=== PATIENT | female | born 1950 | race Caucasian/White ===

== ENCOUNTER → 2017-11-21 13:05 | Outpatient (CLI) | payer MEDICARE, SELFPAY ==
--- NOTE | 2017-11-21 | NVE_ITS ---
Cerebrovascular Exam Indications: 729.5 Pain in limb. IMPRESSIONS 1. There is no evidence of significant Reflux. 2. No evidence of deep or superficial vein thrombosis involving the right lower extremity Carotid duplex study. Complete study and Doppler flow study including spectral analysis, color and quintana scale imaging. Location: Vascular laboratory. Patient status: Outpatient. Tables: Venous flow and imaging: + +-------+ + Location Overall Flow properties + +-------+ + Right common femoral Patent Normal phasicity; spontaneous; normal augmentation; compressible + +-------+ + Right saphenofemoral junction Patent Compressible + +-------+ + Right profunda femoral Patent Compressible + +-------+ + Right femoral Patent Normal phasicity; spontaneous; normal augmentation; compressible + +-------+ + Right greater saphenous Patent Normal phasicity; spontaneous; normal augmentation; compressible + +-------+ + Right popliteal Patent Normal phasicity; spontaneous; normal augmentation; compressible + +-------+ + Right posterior tibial Patent Compressible + +-------+ + Right peroneal Patent Compressible + +-------+ + Right gastrocnemius Patent Compressible + +-------+ + Right soleal Patent Compressible + +-------+ + (Report amended ) Electronically signed by: Loy Luna [id number]
== END ==
PROVIDERS: PCP Family Medicine; Visit Provider Emergency Medicine
DX: M79.89 Other specified soft tissue disorders (principal)
CPT/HCPCS: 93971

== ENCOUNTER → 2017-11-28 07:40 | Outpatient (CLI) | payer MEDICARE, SELFPAY ==
--- NOTE | 2017-11-28 08:01 | CA_ITS ---
PROCEDURE: 2-D M-mode and color Doppler study INDICATIONS FOR THE TEST: Chest pain COPD Heart Murmur Tobacco Smoking Palpitations Fatigue Syncope EdemaX Hypertension Diabetes Mellitus Rheumatic Fever SOBXDOE ObesityXHyperlipidemia Family History HD Additional History PATIENT INFORMATION HEIGHT: 68 WEIGHT:260 GENDER: Female B/P:110/70 2-D/M-MODE INTERPRETATION: 2-D MEASUREMENTS OBSERVED VALUES IN CMS Right Ventricular Dimension (RVDd) 2.3 Interventricular Septum (Thickness)(IVsd) .8 Left Ventricular Internal Dimensions(LVIDd) 5.3 Left Ventricular Posterior Wall (Thickness)(LVPWd) .9 Aortic Root 3.3 Aortic Cusp Separation 2.3 Left Atrial Dimensions (LAD) 3.6 2D 1. Left atrium is mildly enlarged, left ventricle is normal size, visually estimated ejection fraction 55% with no regional wall motion abnormality. 2. The right atrium and right ventricle are normal size and contractility. 3. The aortic valve is minimally thickened and fibrosed. 4. The mitral and tricuspid valve leaflets are structurally normal. 5. The pulmonic valve is poorly visualized. 6. No significant pericardial effusion noted. DOPPLER INTERROGATION: Doppler interrogation of the aortic, mitral and tricuspid valvular presence of mild mitral and tricuspid regurgitation, tricuspid regurgitation jet velocity is insufficient for calculation of the right ventricular systolic pressure, grade 1 diastolic dysfunction seen without tissue Doppler evidence of raised left atrial pressure. CONCLUSION: 1. Mildly enlarged left atrium, normal left ventricular size, visually estimated ejection fraction 55% with no regional wall motion abnormality, grade 1 diastolic dysfunction seen without tissue Doppler evidence of raised left atrial pressure. 2. Mild mitral and tricuspid regurgitation 3. No significant pericardial effusion noted.
== END ==
PROVIDERS: Family Provider Family Medicine; PCP Family Medicine; Visit Provider Emergency Medicine
DX: R06.02 Shortness of breath (principal)
CPT/HCPCS: 93306

== ENCOUNTER → 2018-03-07 08:18 | Outpatient (CLI) | payer MEDICARE, SELFPAY ==
--- NOTE | 2018-03-07 08:25 | MM_ITS ---
MM Dig screening mamm BI w/CAD CAD Screening COMPARISON: Digital mammograms with CAD 02/12/2014 and 11/01/2012 INDICATION: There is no personal or family history of breast cancer TECHNIQUE: Standard CC and MLO images were obtained. R2 CAD reviewed. FINDINGS: The breasts are composed primarily of fat with very minimal scattered fibroglandular densities in each breast. There is a mole marker left breast. There are couple benign-appearing microcalcifications right breast. Stable small nodes in both axilla. There is no suspicious lesion and no suspicious microcalcifications in either breast. IMPRESSION: Stable exam no suspicious lesion seen BI-RADS Category: 2 Benign Finding(s) RECOMMENDED FOLLOW-UP: 1YR - 1 YEAR FOLLOW-UP (A letter has been sent to the patient regarding results of the study.)
--- NOTE | 2018-03-07 08:25 | XR_ITS ---
XR DEXA axial skeleton HISTORY: ITS.REASON: OSTEOPENIA ORDERING PHYSICIAN: Blank Walls MD PATIENT AGE: 67 years COMPARISON: 11/01/2012 FINDINGS: The BMD measured at the Left femoral neck is 1.170 g/cm squared with a T score of 0.9. This is considered Normal according to the World Health Organization criteria. Fracture risk is Low. Treatment is advised. L1 L4 density has a T score 4.0. The lumbar density has increased by 4.5% in the hip density has increased by 1.4% IMPRESSION: Normal bone density. Suggest follow-up exam in 2 years
== END ==
PROVIDERS: PCP Family Medicine; Visit Provider Family Medicine
DX: Z12.31 Encounter for screening mammogram for malignant neoplasm of breast (principal); M81.0 Age-related osteoporosis without current pathological fracture
CPT/HCPCS: 77067; 77080

== ENCOUNTER → 2019-03-25 15:32 | Outpatient (CLI) | payer MEDICARE, SELFPAY ==
--- NOTE | 2019-03-25 15:36 | MM_ITS ---
PROCEDURE: MM DIG SCREENING MAMM BI W/CAD CLINICAL INDICATION: SCREENING There is no personal or family history of breast cancer. COMPARISON: [facility] DIG MAMM-SCREEN [facility] from 02/12/2014 [facility] MM Dig screening mamm BI w/CAD from 03/07/2018 TECHNIQUE: Standard CC and MLO images were obtained. Martin images were performed FINDINGS: The breasts are composed primarily of fat with minimal scattered fibroglandular densities in each breast. The findings of bilateral and symmetrical. There is no suspicious lesion in either breast and no suspicious microcalcifications. Total images were reviewed showing no abnormality. IMPRESSION: Fatty type breast parenchyma with no suspicious lesions seen BI-RAD Category: 1 Negative FOLLOW-UP: 1YR 1 Year Follow-up (A letter has been sent to the patient regarding results of the study.) Dictated by: Dr. Rickey Sanchez MD 03/31/2019 11:[address] Rickey Sanchez MD in [place] 03/31/2019 11:20
== END ==
PROVIDERS: PCP Family Medicine; Visit Provider Physician Assistant
DX: Z12.31 Encounter for screening mammogram for malignant neoplasm of breast (principal)
CPT/HCPCS: 77063; 77067

== ENCOUNTER 2019-07-01 16:16 | Observation (INO) | payer MEDICARE, SELFPAY ==
[2019-07-01 16:45] VITALS: BMI 37.8
[2019-07-01 16:47] VITALS: BP 128/76; PULSE 68; RESP 19; TEMP 36.4; O2SAT 95
--- NOTE | 2019-07-01 17:26 | XR_ITS ---
PROCEDURE: XR CHEST 2V CLINICAL HISTORY: Chest discomfort, SOA COMPARISON: XR CHEST PORTABLE from 06/11/2019 FINDINGS: The cardiomediastinal silhouette and pulmonary vascularity are within normal limits. There are increased markings in the right lung base medially and may be related to patchy area of infiltrate versus vascular overlap.. The remaining lungs are clear. No acute bony abnormalities. IMPRESSION: Possible right basilar infiltrate. Dictated by: Loy Luna MD 07/02/2019 06:42 Electronically signed by Loy Luna MD in [place] 07/02/2019 06:42
--- NOTE | 2019-07-01 17:29 | HMH.ACPN2 ---
Internal Medicine - PN: Subj *Date: 07/01/19 *Time: 17:29 Interval history: See H&P from [facility]. Admitted with SOA and episodic chest discomfort over the past week. Sometimes feels she needs to lean forward to aleviate symptoms. Has FHx CAD. Not a smoker. Hx sinus infections. NAD. Lungs Clear. Recent CXR clear. HR reg, no ectopy, no murmurs. Wearing support stockings. Exam Vital signs and Labs for Last 24 Hours: Temp Pulse Resp BP Pulse Ox 97.6 F 68 19 128/76 95 07/01/19 16:47 07/01/19 16:47 07/01/19 16:47 07/01/19 16:47 07/01/19 16:47 I & O for Last 24 hours: Intake & Output 06/29/19 06/30/19 07/01/19 07/02/19 11:59 11:59 11:59 11:59 Weight 248 lb 6 oz Assessment and Plan (1) Chest discomfort Current visit: Yes Status: Acute Category: Medical Code(s): R07.89 - Other chest pain (2) Shortness of breath Current visit: Yes Status: Acute Category: Medical Code(s): R06.02 - Shortness of breath (3) Leg edema Current visit: Yes Status: Acute Category: Medical Code(s): R60.0 - Localized edema - Assessment and plan all Dx Assessment and Plan for all problems:: See orders. Cardiac consultation. Myoview GXT in AM
--- NOTE | 2019-07-01 17:30 | ECG_ITS ---
APPROVED REPORT Exam: Resting ECG HR:61 bpm ECG Measurements Heart Rate 61 AXES MI 170 P 46 QRSd 82 QRS 14 QT 456 T 51 QTc 459 <Conclusion> Normal sinus rhythm Normal ECG Electronically signed by : Sammy Mulligan, 07/02/2019 16:47:11
[2019-07-01 17:55] VITALS: PULSE 60
[2019-07-01 17:55] LABS: Basophils # 0.1 K/mm3 (0-0.2); Basophils % 0.6 % (0.1-2.0); Eosinophils # 0.3 K/mm3 (0.0-0.4); Eosinophils % 2.8 % (0.1-12.0); Hematocrit 42.4 % (37.0-47.0); Hemoglobin 13.7 g/dL (12.2-16.2); Lymphocytes # 3.2 K/mm3 (0.7-4.5); Lymphocytes % 32.7 % (10-50); Mean Corpuscular HGB Conc 32.3 g/dL (31.8-35.4); Mean Corpuscular Volume 92.7 fl (81-99); Mean Platelet Volume 7.7 fl (7.4-10.4); Monocytes # 0.4 K/mm3 (0.1-1.0); Monocytes % 3.5 % (1.7-9.3); Neutrophils % 60.2 % (37.0-80.0); Platelet Count 302 K/mm3 (142-424); Red Blood Count 4.58 M/mm3 (4.20-5.40); Red Cell Distribution Width 12.8 % (11.5-17.5); White Blood Count 9.9 K/mm3 (4.8-10.8)
[2019-07-01 18:02] LABS: Chloride 100 mmol/L (98-107)
[2019-07-01 18:03] LABS: Potassium 3.8 mmoL/L (3.5-5.1); Sodium 139 mmol/L (136-145)
[2019-07-01 18:05] LABS: Alanine Aminotransferase 22 U/L (12-78); Alkaline Phosphatase 91 U/L (38-126); Anion Gap 10.8 mEq/L (5-15); Aspartate Amino Transferase 29 U/L (14-36); Bilirubin,Total 0.2 mg/dl (0.2-1.3); Blood Urea Nitrogen 16 mg/dl (7-17); Carbon Dioxide 32 mmol/L (22.0-30.0); Creatinine Clearance Estimated 94 mL/min (50-200); Estimated Glomerular Filt Rate 71 ml/min (>60); GFR (African American) 86 ML/MIN (>60)
[2019-07-01 18:06] LABS: Albumin Level 4.2 g/dl (3.5-5.0); Albumin/Globulin Ratio 1.4 (1.1-1.8); Calcium 9.5 mg/dl (8.4-10.2); Creatine Kinase 71 U/L (30-135); Globulin 2.9 g/dL (1.3-3.2); Glucose 95 mg/dl (74-100); Total Protein,Serum 7.1 g/dl (6.3-8.2)
[2019-07-01 18:07] LABS: Microscopic, Urine URINE MICROSCOPIC (MICROSCOPIC)
[2019-07-01 18:10] LABS: Appearance,Urine CLEAR (Clear); Bilirubin,Urine Negative (Negative); Blood, Urine TRACE-I (Negative); Color,Urine YELLOW (Yellow); Glucose,Urine (UA) Negative (Negative); Ketones,Urine Negative (Negative); Leukocyte Esterase,Urine TRACE (Negative); Nitrate,Urine Negative (Negative); Protein,Urine Negative (Negative); Urobilinogen,Urine 0.2 EU/dl (0.2)
[2019-07-01 18:15] LABS: CKMB Relative Index 0.6 U/L (0-4.0); Creatine Kinase MB 0.4 ng/ml (0.0-2.03)
[2019-07-01 18:17] LABS: Bacteria,Urine Trace /lpf; Squamous Epithelial Cell,Urine Occasional #/hpf (0-5); WBC,Urine Occasional #/hpf (0-3)
[2019-07-01 18:24] LABS: D-Dimer 108 ng/mL (0-400)
[2019-07-01 18:46] LABS: Troponin I < 0.01 ng/ml (0.00-0.034)
[2019-07-01 20:00] VITALS: BP 103/52; PULSE 67; PULSE 70; RESP 20; TEMP 36.4; O2SAT 94
[2019-07-01 22:00] VITALS: BP 113/61
[2019-07-02] VITALS (25 sets, daily range): BP systolic 90–129; BP diastolic 45–70; PULSE 50–70; RESP 14–20; TEMP 36.2–36.9; O2SAT 91–98; BMI 38.4
--- NOTE | 2019-07-02 | IR_ITS ---
APPROVED REPORT Patient Location: Inpatient Hospital Pharmacy Director: ATIF Rivera RT (R) PROCEDURES Left heart catheterization Left ventriculogram Selective coronary angiogram INDICATION High risk abnormal Myoview, Acute coronary syndrome, Informed consent was obtained prior to the procedure. COMPLICATIONS none Estimated Blood Loss: less than 10 mls TECHNIQUE One percent lidocaine used to anesthetize the right anterior aspect of the wrist. The right radial artery was accessed via the Seldinger technique. A 6 Swedish sheath was placed in the right radial artery. 2.5 mg of verapamil, 800 mcg of nitroglycerin, 1mg Lidocaine and 5000 U Heparin were given through the arterial sheath. The trap catheter was also used to perform left heart catheterization, left ventriculogram and selective coronary angiogram. At the end of the procedure the sheath was removed good hemostasis was achieved using Traclet band, patient was transferred to the postop holding area in stable condition. ANGIOGRAPHIC RESULTS The left main artery Normal The left anterior descending artery Has proximal and mid vessel mild 10 to 20% luminal irregularities The circumflex artery Nondominant normal The right coronary artery Dominant and proximal and mid vessel mild [id number] 10 to 20% stenoses The ROSARIO ventriculogram reveals Normal 65% The left ventricular end-diastolic pressure 10-15 mmHg IMPRESSION Mild non-flow limiting CAD Normal ejection fraction Mildly elevated LVEDP c/w diastolic dysfunction PLAN 1. Medical management Electronically signed by : Bandar Retana, 07/02/2019 14:09:17
--- NOTE | 2019-07-02 | CA_ITS ---
APPROVED REPORT Exam: Exercise Treadmill Technologist: Megan Keith Ht: 5 ft 8 in Wt: 253 lbs BSA: 2.26 m2 HR: 72 bpm BP: 129/70 mmHg Indications: Chest Discomfort, Shortness of Air Medical History Medications: Irbesartan,,,,, Furosemide (LASIX),,,,, Pravastatin,,,,, Metformin,,,,, Oxazepam,,,,, Potassium,,,,, Stress Test Details Test: Manual Treadmill, Exercise stress testing was performed using a Heber protocol. HR Resting HR: 77 bpm Max Heart Rate (APMHR): 151 bpm Max HR Achieved: 120 bpm Target HR (85% APMHR): 128 bpm % of APMHR: 79 Recovery HR: 74 bpm BP Resting BP: 129.0/70.0 mmHg Max BP: 129.0/70.0 mmHg Recovery BP: 120.0/62.0 mmHg ECG Clinical Exercise duration: 05:02 min Highest Stage Achieved: Exercise capacity: 7.0 METs Stress ECG Conclusion Resting ECG: Sinus rhythm Heber protocol completed. Patient exercised 05:02. Stopped due to shortness of breath. Patient jumped off treadmill at peak exercise after given injection. Symptoms: Shortness of breath at peak exercise. Resolved in recovery. No chest pain. Arrhythmias/Ectopy: Occasional PAC. Occasional PVC. ST-T Changes: Greater than 1.[address] depression. Conclusion: Images to follow. Test Summary REST . . . . . . . Sitting REST 03:09 0.0 0.0 77 . 129/ 70 . . Stage 1 01:00 10.0 1.7 90 . . . . Stage 1 02:00 10.0 1.7 100 . . . . Stage 1 03:00 10.0 1.7 105 . . . . Stage 2 01:00 12.0 2.5 117 . . . . Stage 2 . . . . . . . Protocol changed to Manual Treadmill Stage 2 02:00 11.0 2.3 120 . . . . Stage 2 02:02 11.0 0.0 120 . . . Stop exercise at 05:02 RECOVERY 01:00 0.0 0.0 97 . . . . RECOVERY 02:00 0.0 0.0 85 . . . . RECOVERY 03:00 0.0 0.0 76 . . . . RECOVERY 04:00 0.0 0.0 70 . . . . RECOVERY 05:00 0.0 0.0 71 . 128/ 62 . . RECOVERY 06:00 0.0 0.0 69 . 128/ 62 . . RECOVERY 06:48 0.0 0.0 73 . 120/ 62 . . Electronically signed by : Terrell De La Cruz, 07/03/2019 10:16:50
--- NOTE | 2019-07-02 00:09 | PC.NURSE ---
PATIENT REPORTS HER TEMP AT HOME ALWAYS READ 94.0+ TIME SHE CHECKS IT.
--- NOTE | 2019-07-02 04:39 | PC.NURSE ---
A&O X4. DENIES CHEST DISCOMFORT THIS SHIFT. RESTED WELL WITH EYES CLOSED T/O SHIFT WITH NO COMPLAINTS. DENIES SOA. DENIES PAIN. TOLERATED RA WELL. NSR NOTED ON EDUCATION INSTRUCTOR. BILAT TEDS ON, PT'S OWN TEDS. AMB INDEPENDENTLY TO AND FROM BATHROOM, TOLERATED WELL. VSS. REMAINS SAFE. CALL LIGHT WITHIN REACH. WILL CONTINUE TO MONITOR.
--- NOTE | 2019-07-02 06:07 | PC.NURSE ---
PER PROTOCOL PT REMAINS NPO THIS AM FOR BREAKFAST DUE TO NUCLEAR STRESS TEST. ALSO PER RADIOLOGY PT IS TO BE KEPT NPO THIS AM FOR BREAKFAST UNTIL FURTHER NOTICE. CHECKED FS GLU THIS AM, NOTED AT 106. HELD METFORMIN THIS AM DUE TO NPO STATUS. WILL REPORT THIS TO ONCOMING NURSE THIS AM.
--- NOTE | 2019-07-02 06:30 | NM_ITS ---
APPROVED REPORT Exam: Nuclear Stress Test Indication: obesity, htn, fm hx, c.p., sob, fatgue Patient Location: Inpatient Stress Tech: Megan Keith MA Tech:Tania Edgar ARRJolynn RT (R)(N)(M) Ht: 5 ft 8 in Wt: 250 lbs Bra Size: D HR: 72 bpm BP: 129/70 mmHg BSA: 2.25 m2 BMI: 38.0 History: obesity, htn, fm hx, c.p., sob, fatgue Procedure: Patient exercised on Heber protocol 5:02 minutes and sec, resting heart rate 72 bpm, resting blood pressure 129/70 mmHg, with exercise maximum heart rate achived was 120 bpm which is 80 % of the maximum predicted heart rate and blood pressure was 134/82 mmHg. Test was stopped due to sob. Patient has Adequate exercise capacity, achieved 7.0 METs of workload on treadmill, the blood pressure response to exercise was Abnormal. Electrocardiogram Resting electrocardiogram showed sinus rhythm, with exercise there is a millimeter ST segment depression noted from the baseline EKG. The EKG portion of the exercise Myoview is positive for ischemia. Cardiac Stress and Resting SPECT Images: Cardiac Stress and Resting SPECT images were obtained using technetium 99m Myoview 30.0 mCi stress and 11.05 mCi at rest. Gated SPECT for analysis of segmental wall motion and calculation of the ejection fraction also done. Cardiac stress and resting SPECT images show decreased tracer activity in the anterior , anterior apical and anteroseptal wall which partially improves on the resting images suggestive of mixed ischemia and scar, this is study is technically limited due to patient's body habitus, computer derived ejection fraction is over 65% with mild apical hypokinesis. Right ventricle is normal size and contractility. Conclusion: 1. The EKG portion of the exercise Myoview is positive for ischemia, patient has adequate exercise capacity achieved 7 mets of workload on treadmill, the blood pressure response to exercise was abnormal, test was stopped due to shortness of breath. 2. Scintigraphic evidence of partially reversible defect involving the anterior, anterior apical and anteroseptal wall which is likely secondary to mixed ischemia and scar in that area. This is study is technically limited due to patient's body habitus, computer derived ejection fraction is over 65% with mild apical hypokinesis, right ventricle is normal size and contractility. 3. Abnormal exercise Myoview study. Electronically signed by : Terrell De La Cruz, 07/03/2019 10:24:15
[2019-07-02 06:36] LABS: POC Glucose,Bedside 109 (70-110)
--- NOTE | 2019-07-02 07:20 | HMH.PHAVTE ---
[facility] Pharmacy VTE Monitoring - Patient Demographics Admission date: 07/01/19 Report Date: 07/02/19 Time: 07:20 Allergies/Adverse Reactions: Patient Allergies amoxicillin [From AUGMENTIN] Allergy (Unknown, Verified 06/11/19 16:29) clavulanic acid [From AUGMENTIN] Allergy (Unknown, Verified 06/11/19 16:29) codeine [CODEINE] Allergy (Unknown, Verified 06/11/19 16:29) Height: 1.73 m Weight: 115.014 kg Patient Problems: Current Active Problems Chest discomfort (Acute) Shortness of breath (Acute) Leg edema (Acute) - VTE Risk Labs: VTE Related Lab Results Hgb 13.7 g/dL (12.2-16.2) 07/01/19 17:46 Hct 42.4 % (37.0-47.0) 07/01/19 17:46 Plt Count 302 K/mm3 (142-424) 07/01/19 17:46 BUN 16 mg/dl (7-17) 07/01/19 17:46 Creatinine 0.80 mg/dl (0.52-1.04) 07/01/19 17:46 Estimated Creat Clear 94 mL/min (50-200) 07/01/19 17:46 Was VTE Risk Assessment Performed: Yes VTE Score: 1 VTE Risk Level: Very Low Risk - Prophylaxis VTE Prophylaxis Ordered?: Yes Types of VTE Prophylaxis: TEDS Knee High Location of Applied Device: Bilateral Lower Extremeties - VTE Diagnosis Confirmed Treatment or plan recommended: Continue Current Treatment
[2019-07-02 07:45] LABS: Creatine Kinase 72 U/L (30-135)
[2019-07-02 07:55] LABS: CKMB Relative Index 0.6 U/L (0-4.0); Creatine Kinase MB 0.4 ng/ml (0.0-2.03)
[2019-07-02 08:01] LABS: Troponin I < 0.01 ng/ml (0.00-0.034)
--- NOTE | 2019-07-02 09:00 | CA_ITS ---
APPROVED REPORT EXAM: Comprehensive 2D, Doppler, and color-flow Echocardiogram Field Producer: Frances Kapadia CRT Ht: 5 ft 8 in Wt: 253lbs BSA: 2.26 BP: 129/70 mmHg Indications: Chest Pain, Shortness of Breath, Obesity, Peripheral Edema 2D Dimensions LVOT 1.66 cm (M/F) 1.5-2.5 M-Mode Dimensions RVDd 2.40 cm (0.9-2.6) LVDd 4.61 cm (3.5-5.7) LVDs 3.61 cm (3.5-5.7) IVSd 0.79 cm (0.6-1.1) PWd 0.47 cm (0.6-1.1) EF (Teich) 44.00% FS 21.70% EDV (Teich) 97.80 mL ESV (Teich) 54.80 mL LV Diastology E/A Ratio 1.13 Mitral Valve MV A Velocity 70.00 (40-130 cm/s) Left Ventricle Left atrium is mildly enlarged, left ventricle is normal size, mild concentric left ventricular hypertrophy, visually estimated ejection fraction 55% with no regional wall motion abnormality, grade 1 diastolic dysfunction seen with tissue Doppler evidence of raise left atrial pressure. Right Ventricle Right atrium right ventricular normal size and contractility. Aortic Valve Aortic valve is minimally thickened and fibrosed. There is no aortic stenosis or aortic insufficiency. Mitral Valve Mitral valve grossly normal, there is mild mitral regurgitation. Tricuspid Valve Tricuspid valve is grossly normal, there is mild tricuspid regurgitation. Pulmonic Valve Pulmonic valve is poorly visualized. Great Vessels Aortic root is normal size. Pericardium No significant pericardial effusion noted. Inferior vena cava is mildly dilated without significant inspiratory collapse. Conclusion 1. Mildly enlarged left atrium, normal left ventricular size, mild concentric left ventricular hypertrophy, visually estimated ejection fraction 55% with no regional wall motion abnormality, grade 1 diastolic dysfunction seen with tissue Doppler evidence of raise left atrial pressure. 2. Mild mitral and tricuspid regurgitation. 3. No significant pericardial effusion noted, inferior vena cava is mildly dilated without significant inspiratory collapse. Electronically signed by : Terrell De La Cruz, 07/03/2019 11:31:18
--- NOTE | 2019-07-02 09:07 | CT_ITS ---
PROCEDURE: CT ANGIO CHEST CLINCIAL INDICATION: SOA, right infiltrate, low sats Shortness of air, chest discomfort, low O2 saturation, abnormal chest x-ray COMPARISON: XR CHEST 2V from 07/01/2019 TECHNIQUE: IV Contrast: 70ML OPTIRAY 350 Axial images obtained with sagittal and coronal reformats. All CT scans at the facility use one or more dose reduction, viz: automated exposure control, ma/kV adjustment per patient size (including targeted exams where dose is matched to indication, i.e. head), or iterative reconstruction technique. FINDINGS: HEART AND MEDIASTINAL STRUCTURES: No evidence of aortic aneurysm or dissection. No evidence of pulmonary embolus. No mediastinal or hilar mass or adenopathy. There is a small subcarinal lymph node at 1.3 by 1.1 cm nonspecific LUNGS AND PLEURAL SPACES: No acute infiltrate. No central obstructing lesion. The density noted in the right lung base on the chest radiograph is no longer apparent and could be due to some atelectasis and vascular crowding. BONY STRUCTURES: Degenerative changes are present in the thoracic spine. UPPER ABDOMEN: Prior cholecystectomy with mild ectasia of the biliary tree ADDITIONAL FINDINGS: No other significant abnormalities. IMPRESSION: No acute finding. No evidence of pulmonary embolus. The Dictated by: Lyo Luna MD 07/02/2019 12:07 Electronically signed by Loy Luna MD in [place] 07/02/2019 12:07
--- NOTE | 2019-07-02 09:10 | P.PN_ITS ---
Internal Medicine - PN: Subj *Date: 07/02/19 *Time: 09:10 Interval history: The patient was stable through the night. She does not feel short of breath at present time. There are several points of concern: The chest x-ray was read as a possible right infiltrate. Her CO2 levels were slightly elevated at 32. Her oxygen saturations have been 90 to 93%. Her d-dimer was not elevated. Cardiac enzymes were negative. She has not yet been seen in consultation by cardiology. She is scheduled for her Myoview this morning. Dr. Walls reviewed the chest x-ray with Dr. Luna. A CT with PE protocol will be obtained. Exam Vital signs and Labs for Last 24 Hours: Temp Pulse Resp BP Pulse Ox 97.6 F 64 17 129/70 94 L 07/02/19 07:41 07/02/19 07:41 07/02/19 07:41 07/02/19 07:41 07/02/19 07:41 Laboratory Results - last 24 hr 07/01/19 17:46: WBC 9.9, RBC 4.58, Hgb 13.7, Hct 42.4, MCV 92.7, MCH 30.0, MCHC 32.3, RDW 12.8, Plt Count 302, MPV 7.7, Neut % (Auto) 60.2, Lymph % (Auto) 32.7, [place] % (Auto) 3.5, Eos % (Auto) 2.8, Baso % (Auto) 0.6, Neut # (Auto) 6.0, Lymph # (Auto) 3.2, [place] # (Auto) 0.4, Eos # (Auto) 0.3, Baso # (Auto) 0.1 07/01/19 17:46: Sodium 139, Potassium 3.8, Chloride 100, Carbon Dioxide 32 H, Anion Gap 10.8, BUN 16, Creatinine 0.80, Estimated Creat Clear 94, Estimated GFR 71, Est GFR ( Amer) 86, Glucose 95, Calcium 9.5, Total Bilirubin 0.2, AST 29, ALT 22, Alkaline Phosphatase 91, Total Protein 7.1, Albumin 4.2, Globulin 2.9, Albumin/Globulin Ratio 1.4 07/01/19 17:46: Total Creatine Kinase 71, CK-MB (CK-2) 0.4, CK-MB (CK-2) Rel Index 0.6, Troponin I < 0.01 07/01/19 17:46: D-Dimer 108 07/01/19 17:50: Urine Color Yellow, Urine Appearance Clear, Urine pH 6.0, Ur Specific [place] 1.020, Urine Protein Negative, Urine Glucose (UA) Negative, Urine Ketones Negative, Urine Blood Trace-i, Urine Nitrate Negative, Urine Bilirubin Negative, Urine Urobilinogen 0.2, Ur Leukocyte Esterase Trace, Urine WBC Occasional, Ur Squamous Epith Cells Occasional, Urine Bacteria Trace 07/02/19 06:01: POC Glucose 109 07/02/19 07:30: Total Creatine Kinase 72, CK-MB (CK-2) 0.4, CK-MB (CK-2) Rel Index 0.6, Troponin I < 0.01 I & O for Last 24 hours: Intake & Output 06/29/19 06/30/19 07/01/19 07/02/19 11:59 11:59 11:59 11:59 Intake Total 751 / 751 Balance 751 / 751 Weight 253 lb 9 oz - Constitutional no acute distress - *Routine HEENT Exam Head: Present: normocephalic Eye: Present: PERRL ENT: Present: mucous membranes moist - *Routine Respiratory Exam Present: CTA bilaterally - *Routine Cardiovascular Exam Present: RRR Assessment and Plan (1) Chest discomfort Current visit: Yes Status: Acute Category: Medical Code(s): R07.89 - Other chest pain (2) Shortness of breath Current visit: Yes Status: Acute Category: Medical Code(s): R06.02 - Shortness of breath (3) Leg edema Current visit: Yes Status: Acute Category: Medical Code(s): R60.0 - Localized edema - Assessment and plan all Dx Assessment and Plan for all problems:: As stated above: Cardiology consult. Myoview. CT with PE protocol.
[2019-07-02 09:27] LABS: Chol/HDL Ratio 3.7 (1-3.5); Cholesterol 140 mg/dl (140-200); HDL Cholesterol 38 mg/dl (40-60); Triglycerides 163 mg/dl (30-150); VLDL Cholesterol 33 mg/dL (0-40)
[2019-07-02 09:37] LABS: Direct LDL Cholesterol 92.95 mg/dL (100-129)
--- NOTE | 2019-07-02 12:48 | HMH.CNCARD ---
History of Present Illness Consult date: 07/02/19 Requesting physician: Blank Walls Consult reason: chest pain, shortness of breath Chief complaint: sob and chest pain Additional Medical History:: 1. htn 2. hld 3. DM History of present illness: This is a 69-year-old female who was admitted to the hospital with shortness of breath. She states that she has been short of breath for approximately 3 weeks and continues to worsen. She is having tightness and pressure in the center of her chest. She is unsure if it is radiating to her left shoulder or not because she sometimes does have intermittent shoulder pain from being in a [employer] but she has noticed that with the chest pressure and tightness she does have some left shoulder pain as well. She states that this is associated with shortness of breath and nausea. She rates this a 5 or a 6 out of 10 in intensity. It occurs randomly. Worse with exertion. Nothing really helps to improve the chest pain and pressure. She states her shortness of breath just continues to worsen. She does report having bilateral lower extremity edema. She denies any fever, chills, vomiting, diarrhea, PND,, orthopnea, or cough. She states for the last 3 weeks she has just not felt well. She states that she was evaluated in the cough clinic about 17 days ago and given antibiotics. The antibiotics did not help with her symptoms. [facility] History I have reviewed the patient's past medical history: Yes Medical History: Reports:: Diabetes Mellitus Type 2, Hyperlipidemia, Hypertension *Have you ever received a pneumonia vaccine?: Yes *Have you received a flu vaccine this season?: Yes Other Surgeries: Yes: Appendectomy, Cholecystectomy, Colonoscopy, EGD, Hysterectomy-Total - *Social History Smoking Status: Never smoker Alcohol Intake: never *Occupational Status:: employed Housing: house Household Members: spouse *Travel in the last 8 weeks: None Family Hx:: Coronary Artery Disease, Heart Attack, Hyperlipidemia, Hypertension Meds Home Medications Medication Instructions Recorded Confirmed Type Furosemide [Furosemide 10mg/ml 10 mg PO DAILY 06/11/19 07/01/19 History Oral Soln] Levocetirizine Dihydrochloride 5 mg PO DAILY 06/11/19 07/01/19 History Losartan Potassium 25 mg PO DAILY 06/11/19 07/01/19 History Metformin HCl [Metformin ER 500 mg PO DAILY 06/11/19 07/01/19 History Gastric] Pantoprazole Sodium [Pantoprazole 20 mg PO DAILY 06/11/19 07/01/19 History 20mg Tab] Potassium 99 mg PO DAILY 06/11/19 07/01/19 History Rosuvastatin Calcium 10 mg PO DAILY 06/11/19 07/01/19 History Psyllium Husk [Metamucil] 660 gm PO QODHS 07/01/19 07/01/19 History Allergies Allergy/AdvReac Type Severity Reaction Status Date / Time amoxicillin [From AUGMENTIN] Allergy Unknown Verified 06/11/19 16:29 clavulanic acid Allergy Unknown Verified 06/11/19 16:29 [From AUGMENTIN] codeine [CODEINE] Allergy Unknown Verified 06/11/19 16:29 Review of Systems - Review of Systems Review of systems:: pertinent systems reviewed and negative unless documented below - Constitutional Reports fatigue - *Cardiovascular Reports chest pain, Reports chest pain at rest, Reports chest pain with activity, Reports shortness of breath, Reports shortness of breath with activity, Reports leg swelling - *Respiratory Reports shortness of breath, Reports shortness of breath with activity - *Gastrointestinal Reports nausea Exam Vital signs and Labs for Last 24 Hours: Temp Pulse Resp BP Pulse Ox 97.8 F 62 16 128/68 96 07/02/19 12:00 07/02/19 12:00 07/02/19 12:00 07/02/19 12:00 07/02/19 12:00 Laboratory Results - last 24 hr 07/01/19 17:46: WBC 9.9, RBC 4.58, Hgb 13.7, Hct 42.4, MCV 92.7, MCH 30.0, MCHC 32.3, RDW 12.8, Plt Count 302, MPV 7.7, Neut % (Auto) 60.2, Lymph % (Auto) 32.7, [place] % (Auto) 3.5, Eos % (Auto) 2.8, Baso % (Auto) 0.6, Neut # (Auto) 6.0, Lymph # (Auto) 3.2, [place] # (Auto) 0.4, Eos # (Au
--- NOTE | 2019-07-02 13:38 | PC.NURSE ---
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
--- NOTE | 2019-07-02 13:47 | PC.NURSE ---
PATIENT WAS PROVIDED A LUNCH TRAY. THIS RN INFORMED PATIENT TO NOT EAT UNTIL CLARIFICATION OF NPO STATUS. THIS RN SPOKE WITH JIMMY MELGAR TO EAT LUNCH AT THIS TIME. THIS RN REPORTED TO MARKETING PRODUCTION MANAGER DARIUS JOHNSON THAT THIS RN HAD NOT ADMINISTERED METOPROLOL OF YET, RN STATED THAT SHE WILL ADMINISTER.
--- NOTE | 2019-07-02 17:08 | HMH.ACPN2 ---
Internal Medicine - PN: Subj *Date: 07/02/19 *Time: 17:08 Interval history: S/P heart cath with good report: ANGIOGRAPHIC RESULTS The left main artery Normal The left anterior descending artery Has proximal and mid vessel mild 10 to 20% luminal irregularities The circumflex artery Nondominant normal The right coronary artery Dominant and proximal and mid vessel mild [id number] 10 to 20% stenoses The ROSARIO ventriculogram reveals Normal 65% The left ventricular end-diastolic pressure 10-15 mmHg IMPRESSION Mild non-flow limiting CAD Normal ejection fraction Mildly elevated LVEDP c/w diastolic dysfunction PLAN 1. Medical management Exam Vital signs and Labs for Last 24 Hours: Temp Pulse Resp BP Pulse Ox 97.6 F 59 L 16 98/54 L 96 07/02/19 16:00 07/02/19 16:00 07/02/19 16:00 07/02/19 16:00 07/02/19 16:00 Laboratory Results - last 24 hr 07/01/19 17:46: WBC 9.9, RBC 4.58, Hgb 13.7, Hct 42.4, MCV 92.7, MCH 30.0, MCHC 32.3, RDW 12.8, Plt Count 302, MPV 7.7, Neut % (Auto) 60.2, Lymph % (Auto) 32.7, [place] % (Auto) 3.5, Eos % (Auto) 2.8, Baso % (Auto) 0.6, Neut # (Auto) 6.0, Lymph # (Auto) 3.2, [place] # (Auto) 0.4, Eos # (Auto) 0.3, Baso # (Auto) 0.1 07/01/19 17:46: Sodium 139, Potassium 3.8, Chloride 100, Carbon Dioxide 32 H, Anion Gap 10.8, BUN 16, Creatinine 0.80, Estimated Creat Clear 94, Estimated GFR 71, Est GFR ( Amer) 86, Glucose 95, Calcium 9.5, Total Bilirubin 0.2, AST 29, ALT 22, Alkaline Phosphatase 91, Total Protein 7.1, Albumin 4.2, Globulin 2.9, Albumin/Globulin Ratio 1.4 07/01/19 17:46: Total Creatine Kinase 71, CK-MB (CK-2) 0.4, CK-MB (CK-2) Rel Index 0.6, Troponin I < 0.01 07/01/19 17:46: D-Dimer 108 07/01/19 17:50: Urine Color Yellow, Urine Appearance Clear, Urine pH 6.0, Ur Specific [place] 1.020, Urine Protein Negative, Urine Glucose (UA) Negative, Urine Ketones Negative, Urine Blood Trace-i, Urine Nitrate Negative, Urine Bilirubin Negative, Urine Urobilinogen 0.2, Ur Leukocyte Esterase Trace, Urine WBC Occasional, Ur Squamous Epith Cells Occasional, Urine Bacteria Trace 07/02/19 06:01: POC Glucose 109 07/02/19 07:30: Total Creatine Kinase 72, CK-MB (CK-2) 0.4, CK-MB (CK-2) Rel Index 0.6, Troponin I < 0.01 07/02/19 07:30: Triglycerides 163 H, Cholesterol 140, LDL Cholesterol Direct 92.95 L, VLDL Cholesterol 33, HDL Cholesterol 38 L, Cholesterol/HDL Ratio 3.7 H I & O for Last 24 hours: Intake & Output 06/30/19 07/01/19 07/02/19 07/03/19 11:59 11:59 11:59 11:59 Intake Total 751 / 751 360 / 360 Output Total 600 / 600 Balance 751 / 751 -240 / -240 Weight 253 lb 9 oz Assessment and Plan (1) Typical angina Current visit: Yes Status: Acute Category: Medical Code(s): I20.9 - Angina pectoris, unspecified (2) Shortness of breath Current visit: Yes Status: Acute Category: Medical Code(s): R06.02 - Shortness of breath (3) Abnormal cardiovascular stress test Current visit: Yes Status: Acute Category: Medical Code(s): R94.39 - Abnormal result of other cardiovascular function study (4) Hypertension Current visit: Yes Status: Chronic Category: Medical Code(s): I10 - Essential (primary) hypertension (5) Hyperlipidemia Current visit: Yes Status: Chronic Category: Medical Code(s): E78.5 - Hyperlipidemia, unspecified (6) Diabetes Current visit: Yes Status: Chronic Qualifiers: Diabetes mellitus type: type 2 Diabetes mellitus assisted insulin use: unspecified bed bug exterminator insulin use status Diabetes mellitus complication status: without complication Qualified Code(s): E11.9 - Type 2 diabetes mellitus without complications Category: Medical Code(s): E11.9 - Type 2 diabetes mellitus without complications (7) Leg edema Current visit: Yes Status: Acute Category: Medical Code(s): R60.0 - Localized edema - Assessment and plan all Dx Assessment and Plan for all problems:: Chest CT was also reassuring. Home to
--- NOTE | 2019-07-02 19:44 | PC.NURSE ---
Air removed from radial closure @ following times: 2 ml @ 1605 2 ml @ 1620 2 ml @ 1635 2 ml @ 1650 2 ml @ 1705 2 ml @ 1720 Pt tolerated well w/ s/s of bleeding. Telfa and tegarderm dressing in place. Re-educated pt on restricted use of RUE. Pt verbalized understanding.
--- NOTE | 2019-07-02 22:05 | PC.NURSE ---
UPON REASSESSMENT POST MEDICATION ADMIN OF HYOSCYAMINE, PT STATES ADEQUATE RELIEF FROM HER PAIN IN HER CHEST/BACK REGIONS. NOW RATING PAIN 1/10 ON PAIN SCALE. PT NOTED LYING IN BED WITH NO FURTHER COMPLAINTS AT THIS TIME. WILL CONTINUE TO MONITOR.
[2019-07-03] VITALS: BP 100/56; PULSE 60; PULSE 69; RESP 17; TEMP 36.4; O2SAT 95
[2019-07-03 00:12] VITALS: PULSE 67; PULSE 70; O2SAT 89
--- NOTE | 2019-07-03 00:21 | PC.NURSE ---
RT REPORTED TO THIS RN THAT SHE PLACED 2 LNC ON PT DUE TO RA SATS AT THIS TIME NOTED AT 89%. NO RESPIRATORY DISTRESS NOTED AT THIS TIME. PT LYING IN BED WITH EYES CLOSED. DENIES SOA. WILL CONTINUE TO MONITOR AND WEAN IF TOLERABLE.
--- NOTE | 2019-07-03 01:27 | PC.NURSE ---
PT'S O2 SATS NOTED AT 95% ON 2LNC. WEANED HER O2 TO 1LNC AT THIS TIME. WILL REASSESS 02 BRIEFLY. PT LYING AWAKE IN BED, DENIES SOA.
--- NOTE | 2019-07-03 01:59 | PC.NURSE ---
UPON REASSESSING PT'S O2 ON 1LNC, O2 NOTED AT 99%. WEANED PT TO RA AT THIS TIME. RA O2 SATS NOTED AT 96% WILL CONTINUE TO MONITOR. DENIES SOA. PT ALSO DENIES ANY PAIN AT THIS TIME.
[2019-07-03 03:42] VITALS: BP 109/54; PULSE 63; RESP 18; TEMP 36.8; O2SAT 93
--- NOTE | 2019-07-03 03:48 | PC.NURSE ---
A&O X4. RESTED WELL THIS SHIFT WITH EYES CLOSED. PT STATES THE PAIN PILL RELIEVED HER PAIN, HYOSCYAMINE. PT REPORTS NO PAIN SINCE ADMINISTRATION. DENIES N/V/D. DENIES SOA. TOLERATED RA WELL THIS AM. RA SATS THIS AM NOTED 93% AT 0400. AMB WELL INDEPENDENTLY TO AND FROM BATHROOM. RIGHT RADIAL CATH SITE DSG NOTED C/D/I. NO S/S/OF HEMATOMA T/O SHIFT. NSR NOTED ON DEHYDRATOR TENDER. REFUSED TEDS, STATES THEY WERE HURTING HER LEGS. VSS. HYPOTENSION NOTED WITH POST CATH VITALS. PT REMAINS ASYMPTOMATIC. MAP NOTED GREATER THAN 65 T/O. THIS AM B/P NOTED 109/54. REMAINS SAFE. CALL LIGHT WITHIN REACH.
[2019-07-03 04:00] VITALS: PULSE 60
[2019-07-03 05:11] VITALS: BMI 37.9
[2019-07-03 06:25] VITALS: PULSE 75; O2SAT 96
[2019-07-03 06:45] LABS: Basophils % 0.3 % (0.1-2.0); Eosinophils # 0.3 K/mm3 (0.0-0.4); Eosinophils % 2.7 % (0.1-12.0); Hematocrit 38.7 % (37.0-47.0); Hemoglobin 12.7 g/dL (12.2-16.2); Lymphocytes # 3.6 K/mm3 (0.7-4.5); Lymphocytes % 38.6 % (10-50); Mean Corpuscular HGB Conc 32.9 g/dL (31.8-35.4); Mean Corpuscular Hemoglobin 30.6 pg (27.0-31.2); Mean Corpuscular Volume 93.1 fl (81-99); Mean Platelet Volume 8.1 fl (7.4-10.4); Monocytes # 0.4 K/mm3 (0.1-1.0); Monocytes % 3.7 % (1.7-9.3); Neutrophils # 5.1 K/mm3 (1.8-7.8); Neutrophils % 54.7 % (37.0-80.0); Platelet Count 294 K/mm3 (142-424); Red Blood Count 4.16 M/mm3 (4.20-5.40); White Blood Count 9.3 K/mm3 (4.8-10.8)
[2019-07-03 06:53] LABS: Chloride 101 mmol/L (98-107)
[2019-07-03 06:54] LABS: Potassium 3.8 mmoL/L (3.5-5.1); Sodium 138 mmol/L (136-145)
[2019-07-03 06:57] LABS: Anion Gap 11.8 mEq/L (5-15); Calcium 8.9 mg/dl (8.4-10.2); Carbon Dioxide 29 mmol/L (22.0-30.0); Glucose 105 mg/dl (74-100)
[2019-07-03 07:02] LABS: Blood Urea Nitrogen 14 mg/dl (7-17); Creatinine Clearance Estimated 95 mL/min (50-200); Estimated Glomerular Filt Rate 71 ml/min (>60); GFR (African American) 86 ML/MIN (>60)
[2019-07-03 08:00] VITALS: BP 138/58; PULSE 81; RESP 17; TEMP 36.4; O2SAT 94
--- NOTE | 2019-07-03 09:06 | HMH.ACPN2 ---
Internal Medicine - PN: Subj *Date: 07/03/19 *Time: 09:06 Interval history: She remained stable through the night. She did however have some epigastric discomfort with radiation to the upper back. She states that this is happened before. She has no gallbladder. She did receive relief with hyoscyamine 0.125 mg. This morning we discussed medications. We discussed use of the inhaler. We discussed results of her testing. She will be discharged this morning with follow-up in [facility] office. Exam Vital signs and Labs for Last 24 Hours: Temp Pulse Resp BP Pulse Ox 97.6 F 81 17 138/58 L 94 L 07/03/19 08:00 07/03/19 08:00 07/03/19 08:00 07/03/19 08:00 07/03/19 08:00 Laboratory Results - last 24 hr 07/02/19 07:30: Triglycerides 163 H, Cholesterol 140, LDL Cholesterol Direct 92.95 L, VLDL Cholesterol 33, HDL Cholesterol 38 L, Cholesterol/HDL Ratio 3.7 H 07/03/19 06:05: WBC 9.3, RBC 4.16 L, Hgb 12.7, Hct 38.7, MCV 93.1, MCH 30.6, MCHC 32.9, RDW 13.0, Plt Count 294, MPV 8.1, Neut % (Auto) 54.7, Lymph % (Auto) 38.6, [place] % (Auto) 3.7, Eos % (Auto) 2.7, Baso % (Auto) 0.3, Neut # (Auto) 5.1, Lymph # (Auto) 3.6, [place] # (Auto) 0.4, Eos # (Auto) 0.3, Baso # (Auto) 0.0 07/03/19 06:05: Sodium 138, Potassium 3.8, Chloride 101, Carbon Dioxide 29, Anion Gap 11.8, BUN 14, Creatinine 0.80, Estimated Creat Clear 95, Estimated GFR 71, Est GFR ( Amer) 86, Glucose 105 H, Calcium 8.9 I & O for Last 24 hours: Intake & Output 06/30/19 07/01/19 07/02/19 07/03/19 11:59 11:59 11:59 11:59 Intake Total 751 / 751 960 / 960 Output Total 1999 Balance 751 / 751 -1040 / -1040 Weight 253 lb 9 oz 250 lb 3 oz - Constitutional no acute distress - *Routine HEENT Exam Eye: Present: PERRL ENT: Present: mucous membranes moist - *Routine Respiratory Exam Present: CTA bilaterally - *Routine Cardiovascular Exam Present: RRR - *Routine Abdominal Exam Present: soft, obese. Absent: tenderness - *Routine Extremities Exam Present: edema (Only trace) - *Routine Neurological Exam Present: alert, oriented X3 Assessment and Plan (1) Chest discomfort Current visit: Yes Status: Acute Category: Medical Code(s): R07.89 - Other chest pain (2) Shortness of breath Current visit: Yes Status: Acute Category: Medical Code(s): R06.02 - Shortness of breath (3) Abnormal cardiovascular stress test Current visit: Yes Status: Acute Category: Medical Code(s): R94.39 - Abnormal result of other cardiovascular function study (4) Recurrent bronchospasm Current visit: Yes Status: Acute Category: Medical Code(s): J98.09 - Other diseases of bronchus, not elsewhere classified (5) Hypertension Current visit: Yes Status: Chronic Category: Medical Code(s): I10 - Essential (primary) hypertension (6) Hyperlipidemia Current visit: Yes Status: Chronic Category: Medical Code(s): E78.5 - Hyperlipidemia, unspecified (7) Diabetes Current visit: Yes Status: Chronic Qualifiers: Diabetes mellitus type: type 2 Diabetes mellitus termite inspector insulin use: unspecified termite inspector insulin use status Diabetes mellitus complication status: without complication Qualified Code(s): E11.9 - Type 2 diabetes mellitus without complications Category: Medical Code(s): E11.9 - Type 2 diabetes mellitus without complications (8) Leg edema Current visit: Yes Status: Acute Category: Medical Code(s): R60.0 - Localized edema - Assessment and plan all Dx Assessment and Plan for all problems:: She will be discharged today. Follow-up will be arranged. Hyoscyamine 0.125 mg will be given by prescription for as needed use. She is to use her Ventolin HFA inhaler 2 inhalations at least 3 times a day.
--- NOTE | 2019-07-03 10:08 | HMH.PHAINT ---
DISCHARGE COUNSELING COMPLETE. SPOKE WITH PATIENT REGARDING ADDITION OF HYOSCYAMINE AND ALBUTEROL. PATIENT ENDORSED NO QUESTIONS AT THIS TIME.
--- NOTE | 2019-07-03 16:34 | HMH.DCSUM ---
General - General Admission date:: 07/01/19 Discharge date: 07/03/19 HPI HPI: Ms Gonzalez is a 69yo female who presented to the office of A with SOA and episodic chest discomfort for 2 weeks. She described the pain as a dull ache that was constant. Sometimes she felt like she needed to lean forward to alleviate symptoms. She has a family history of CAD. She is not a smoker. She was admitted for further evaluation and treatment. Hospital Course Hospital Course: The patient was admitted and had a chest x-ray which showed a possible right basilar infiltrate. Cardiology was consulted and a stress test was ordered. Her stress test was abnormal, therefore cardiology wanted to do a cardiac cath. She also had an echo which showed an EF of 55% and grade 1 diastolic dysfunction. Her heart cath showed mild oit-dwop-snkayzih coronary artery disease and a mildly elevated LVEDP consistent with diastolic dysfunction. Cardiology recommended medical management. She did have a chest CTA which showed no pneumonia and no PE. The patient was started on bronchodilators. By 07/03/2019, she had remained stable but did have some epigastric discomfort with radiation to her upper back. She noted this had happened before. She did receive relief with hyoscyamine, therefore this was started. She was stable to be discharged home on hyoscyamine as well as a Ventolin inhaler and will follow-up in the office of [facility]. Objective Vital signs: Temp Pulse Resp BP Pulse Ox 97.6 F 81 17 138/58 L 94 L 07/03/19 08:00 07/03/19 08:00 07/03/19 08:00 07/03/19 08:00 07/03/19 08:00 Narrative: General Appearance: NAD. HEENT: unremarkable. Oral cavity: no lesions, mucosa moist and WNL, no erythema. Neck: supple, no lymphadenopathy. Chest: normal shape and expansion. Heart: RSR, no murmurs, no ectopics. Lungs: clear to auscultation. Neurologic Exam: Intact, gait normal. Skin: normal, no rash. Extremities: support stockings. Results Labs on day of discharge: Labs from last 24 hours 07/03/19 07/03/19 06:05 06:05 WBC 9.3 RBC 4.16 L Hgb 12.7 Hct 38.7 MCV 93.1 MCH 30.6 MCHC 32.9 RDW 13.0 Plt Count 294 MPV 8.1 Neut % (Auto) 54.7 Lymph % (Auto) 38.6 [place] % (Auto) 3.7 Eos % (Auto) 2.7 Baso % (Auto) 0.3 Neut # (Auto) 5.1 Lymph # (Auto) 3.6 [place] # (Auto) 0.4 Eos # (Auto) 0.3 Baso # (Auto) 0.0 Sodium 138 Potassium 3.8 Chloride 101 Carbon Dioxide 29 Anion Gap 11.8 BUN 14 Creatinine 0.80 Estimated Creat Clear 95 Estimated GFR 71 Est GFR ( Amer) 86 Glucose 105 H Calcium 8.9 DS: Diagnosis - Discharge Diagnosis (1) Chest discomfort Status: Acute (2) Shortness of breath Status: Acute (3) Abnormal cardiovascular stress test Status: Acute (4) Recurrent bronchospasm Status: Acute (5) Hypertension Status: Chronic (6) Hyperlipidemia Status: Chronic (7) Diabetes Status: Chronic (8) Leg edema Status: Acute Discharge Plan - Patient Discharge Instructions ACTIVITY: Continue current activity DIET: low fat, low cholesterol Patient Instructions: DI for Diabetes Type 2, DI for Shortness of Breath, DI for Chest Pain - Follow up Plan Follow up with: Blank Walls MD [Primary Care Provider] - 07/15/19 11:00 am Disposition: Home, [facility] Medications: Home Medications Medication Instructions Recorded Confirmed Type Furosemide [Furosemide 10mg/ml 10 mg PO DAILY 06/11/19 07/01/19 History Oral Soln] Levocetirizine Dihydrochloride 5 mg PO DAILY 06/11/19 07/01/19 History Losartan Potassium 25 mg PO DAILY 06/11/19 07/01/19 History Metformin HCl [Metformin ER 500 mg PO DAILY 06/11/19 07/01/19 History Gastric] Pantoprazole Sodium [Pantoprazole 20 mg PO DAILY 06/11/19 07/01/19 History 20mg Tab] Potassium 99 mg PO DAILY 06/11/19 07/01/19 History Rosuvastatin Calcium 10 mg
== END 2019-07-03 10:09 | disposition home or self-care (01) ==
PROVIDERS: Internal Medicine; Nurse Practitioner Family; Admitting Provider Family Medicine; PCP Family Medicine; Visit Provider Family Medicine
DX: I11.0 Hypertensive heart disease with heart failure (principal); I50.30 Unspecified diastolic (congestive) heart failure; E78.5 Hyperlipidemia, unspecified; E11.9 Type 2 diabetes mellitus without complications; Z79.84 Long term (current) use of oral hypoglycemic drugs; Z79.51 Long term (current) use of inhaled steroids; Z88.8 Allergy status to other drugs, medicaments and biological substances; I25.10 Atherosclerotic heart disease of native coronary artery without angina pectoris
CPT/HCPCS: 36415; 71046; 71275; 78452; 80048; 80053; 80061; 81001; 82550; 82553; 82962; 84484; 85025; 85378; 93005; 93017; 93306; 93458; 94640; 94760; 94761; 99152; A9502; C1725; C1769; G0378; J1644; J2405; Q9967

== ENCOUNTER → 2019-08-07 08:23 | Outpatient (CLI) | payer MEDICARE, SELFPAY ==
[2019-08-07 14:10] LABS: Coronavirus 19 IgG Antibody Negative (Negative); Coronavirus 19 IgM Antibody Negative (Negative)
== END ==
PROVIDERS: Visit Provider Internal Medicine Gastroenterology
DX: Z01.818 Encounter for other preprocedural examination (principal)
CPT/HCPCS: 36415; 86328

== ENCOUNTER 2019-08-08 09:26 | Day surgery (SDC) | payer MEDICARE, SELFPAY ==
[2019-08-05 10:46] VITALS: BMI 37.4
--- NOTE | 2019-08-06 10:18 | SUR.PREOP ---
08/06/2019 @ 1019--PHONE CALL MADE TO PATIENT. PATIENT UNDERSTANDS THAT LAB WORK AND COVID TESTING NEEDS TO BE COMPLETED @ 12 ON 08/07/2019. PATIENT UNDERSTANDS IF LAB WORK AND COVID-19 TESTS ARE NOT COMPLETED BY 12PM ON THAT DATE, THE SURGERY SCHEDULED WILL BE CANCELLED AND RESCHEDULED FOR ANOTHER TIME.
[2019-08-08] VITALS (7 sets, daily range): BP systolic 101–129; BP diastolic 56–76; PULSE 58–65; RESP 18; TEMP 36.5–36.6; O2SAT 92–98
[2019-08-08 10:17] LABS: POC Glucose,Bedside 96 (70-110)
--- NOTE | 2019-08-08 10:57 | P.PCN_ITS ---
[facility] Procedure Note Procedure Note:: Upper Endoscopy Procedure Report: Esophagogastroduodenoscopy with cold biopsies and TTS balloon dilation Endoscopost: Irving Angeles II, MD Referring Physician: Isidro Walls MD Date of Procedure: August 08, 2019 Equipment: Olympus GIF 180 standard upper endoscope Sedation: MAC sedation Indications: Mrs. Gonzalez is a 69-year-old female who has recently had some chest pain radiating into the back. She also has had some globus sensation and voice raspiness. She has some intermittent mild dysphagia. She underwent cardiac catheterization and cardiac evaluation 2 to 3 weeks ago which was normal. She reports no bloating, belching, heartburn or reflux. She has regular bowel function. Her last upper endoscopy was many years. Procedure: Prior to the procedure, a history and physical exam was performed, and patient's medications and allergies were reviewed. The risks, benefits and alternatives of the sedation and procedure were discussed with the patient. All questions were answered and informed consent was obtained. The patient was brought to the procedure room. Patient identification and proposed procedure were verified by the physician and the nurse. The patient was placed in a left lateral decubitus position and the scope was passed under direct vision. Throughout the procedure, the patient's blood pressure, pulse, and oxygen saturations were monitored continuously. The upper GI endoscopy was accomplished without difficulty. The patient tolerated the procedure well. Findings: The scope was passed directly into the upper esophagus and advanced to the third portion of the duodenum. The post bulbar duodenum and duodenal bulb were normal with normal mucosa and conniventes. The scope was withdrawn through a normal duodenal bulb and pylorus into the stomach. There was bile reflux with linear reactive gastropathy of the antrum of the stomach. The remainder of the antrum, body and fundus of the stomach were grossly normal. Upon retroflexion there was no hiatal hernia. 2 biopsies were taken in the antrum and along the lesser curvature for histology to rule out gastritis and/or H pylori. The scope was then withdrawn into the esophagus. There was no evidence of reflux esophagitis or Andrews's. There were tertiary contractions and evidence of moderate esophageal dysmotility. The entire esophagus was dilated to 60 [place]/20 mm with a TTS hydrostatic balloon. There was some resistance at the cricopharyngeus. The remainder of the esophageal mucosa was normal. Impression: 1. Cricopharyngeal spasm status post dilation to 20 mm 2. Nonerosive GERD with moderate esophageal dysmotility 3. Bile reflux with linear reactive gastropathy Plan: I will follow-up the biopsies. I do feel that the patient has esophageal chest pain from functional reflux and esophageal spasm/esophageal dyskinesia. We will discuss dietary measures and treatment options.
== END 2019-08-08 12:20 | disposition home or self-care (01) ==
LOC: OUTP 09:29
PROVIDERS: PCP Family Medicine; Visit Provider Internal Medicine Gastroenterology
PROC: 0DJ08ZZ Inspection of Upper Intestinal Tract, Via Natural or Artificial Opening Endoscopic (ICD-10-PCS; CPT 43235; principal; 2019-08-08 10:30)
DX: J39.2 Other diseases of pharynx; K21.9 Gastro-esophageal reflux disease without esophagitis; K22.4 Dyskinesia of esophagus; K31.9 Disease of stomach and duodenum, unspecified; I10 Essential (primary) hypertension; E78.5 Hyperlipidemia, unspecified; E11.9 Type 2 diabetes mellitus without complications; Z90.49 Acquired absence of other specified parts of digestive tract; Z90.710 Acquired absence of both cervix and uterus; Z82.49 Family history of ischemic heart disease and other diseases of the circulatory system; Z83.438 Family history of other disorder of lipoprotein metabolism and other lipidemia; Z79.899 Other long term (current) drug therapy
CPT/HCPCS: 43239; 43249; 82962; 88305; C1726

== ENCOUNTER → 2020-03-29 11:56 | Outpatient (CLI) | payer MEDICARE, SELFPAY ==
[2020-03-29 13:00] LABS: Basophils % 0.6 % (0.1-2.0); Eosinophils # 0.2 K/mm3 (0.0-0.4); Eosinophils % 3.7 % (0.1-12.0); Hematocrit 40.9 % (37.0-47.0); Hemoglobin 13.5 g/dL (12.2-16.2); Lymphocytes # 2.1 K/mm3 (0.7-4.5); Mean Corpuscular HGB Conc 33.1 g/dL (31.8-35.4); Mean Corpuscular Hemoglobin 31.8 pg (27.0-31.2); Mean Corpuscular Volume 96.3 fl (81-99); Mean Platelet Volume 8.4 fl (7.4-10.4); Monocytes # 0.3 K/mm3 (0.1-1.0); Monocytes % 5.2 % (1.7-9.3); Neutrophils # 2.9 K/mm3 (1.8-7.8); Neutrophils % 52.6 % (37.0-80.0); Platelet Count 211 K/mm3 (142-424); Red Blood Count 4.25 M/mm3 (4.20-5.40); White Blood Count 5.5 K/mm3 (4.8-10.8)
[2020-03-30 10:36] LABS: Covid-19 Nasal PCR Sendout P&C Negative
== END ==
PROVIDERS: PCP Family Medicine; Visit Provider Nurse Practitioner
DX: Z20.822 Contact with and (suspected) exposure to COVID-19 (principal); I10 Essential (primary) hypertension
CPT/HCPCS: 36415; 85025; U0004

== ENCOUNTER → 2020-06-28 08:13 | Outpatient (CLI) | payer MEDICARE, SELFPAY ==
--- NOTE | 2020-06-28 08:17 | MM_ITS ---
PROCEDURE INFORMATION: Exam: MG Screening 3D Mammography Exam date and time: 06/28/2020 8:17 AM Age: 70 years old Clinical indication: Encounter for screening mammogram for malignant neoplasm of breast; Additional info: Screening, fcbd TECHNIQUE: Imaging protocol: Screening tomosynthesis and 2D mammography including computer-aided detection (CAD) when performed. COMPARISON: 1. MG MM DIG SCREENING MAMM BI W/CAD 03/25/2019 3:52 PM 2. MG SCBI MM Dig screening mamm BI w/CAD 03/07/2018 8:40 AM 3. MG DMSB DIG MAMM-SCREEN CORTEZ 02/12/2014 11:29 AM FINDINGS: MAMMOGRAPHY: Breast composition: There are scattered areas of fibroglandular density. Mass: No new suspicious masses. Architectural distortion: No suspicious distortion. Calcifications: No suspicious calcifications. Asymmetric density: None. Skin thickening: None. Axillary adenopathy: None. IMPRESSION: No mammographic evidence of malignancy. Annual screening is recommended unless otherwise clinically indicated. ASSESSMENT: BI-RADS Category 1: Negative
--- NOTE | 2020-06-28 08:18 | XR_ITS ---
PROCEDURE: XR DEXA AXIAL SKELETON CLINICAL HISTORY: OSTEOPENIA COMPARISON: CR DEXAAX XR DEXA axial skeleton from 03/07/2018 FINDINGS: The right hip BMD is 1.068 with a T-score of 2.0. The left hip BMD is 1.045 with a T-score of 0.8. The lumbar spine BMD is 1.457 with a T-score of 3.7. Previously the lowest density was in the left femoral neck with a T-score of 0.90 IMPRESSION: This patient is considered normal according to the World Health Organization criteria. Fracture risk is low. Based on these results a follow-up exam is recommended in 2 year. Dictated by: Loy Luna MD 06/29/2020 06:28 Loy Luna MD in OV 06/29/2020 06:28
== END ==
PROVIDERS: PCP Family Medicine; Visit Provider Family Medicine
DX: Z12.31 Encounter for screening mammogram for malignant neoplasm of breast (principal); M85.89 Other specified disorders of bone density and structure, multiple sites
CPT/HCPCS: 77063; 77067; 77080

== ENCOUNTER → 2021-03-09 15:04 | Outpatient (CLI) | payer MEDICARE, SELFPAY ==
[2021-03-09 15:55] LABS: Adenovirus,PCR Not Detected (NotDetected); Bordetella Pertussis Not Detected (NotDetected); Chlamydophila Pneumoniae, PCR Not Detected (NotDetected); Coronavirus 229E Not Detected (NotDetected); Coronavirus NL63 Not Detected (NotDetected); Coronavirus OC43 Not Detected (NotDetected); Coronovirus HKU1,PCR Not Detected (NotDetected); Human Metapneumovirus Not Detected (NotDetected); Influenza A, PCR Not Detected (NotDetected); Influenza AH1, 2009 Not Detected (NotDetected); Influenza AH1, PCR Not Detected (NotDetected); Influenza AH3,PCR Not Detected (NotDetected); Influenza B, PCR Not Detected (NotDetected); Mycoplasma Pneumoniae, PCR Not Detected (NotDetected); Parainfluenza 1, PCR Not Detected (NotDetected); Parainfluenza 2, PCR Not Detected (NotDetected); Parainfluenza 3, PCR Not Detected (NotDetected); Parainfluenza 4, PCR Not Detected (NotDetected); Respiratory Syncytial Virus Not Detected (NotDetected); Rhinovirus/Enterovirus Not Detected (NotDetected)
[2021-03-09 16:03] LABS: Basophils # 0.1 K/mm3 (0-0.2); Basophils % 0.7 % (0.1-2.0); Eosinophils # 0.3 K/mm3 (0.0-0.4); Eosinophils % 3.4 % (0.1-12.0); Hematocrit 45.8 % (37.0-47.0); Lymphocytes # 3.1 K/mm3 (0.7-4.5); Lymphocytes % 39.6 % (10-50); Mean Corpuscular HGB Conc 32.6 g/dL (31.8-35.4); Mean Corpuscular Hemoglobin 32.1 pg (27.0-31.2); Mean Corpuscular Volume 98.5 fl (81-99); Mean Platelet Volume 8.2 fl (7.4-10.4); Monocytes # 0.4 K/mm3 (0.1-1.0); Monocytes % 4.7 % (1.7-9.3); Neutrophils % 51.6 % (37.0-80.0); Platelet Count 275 K/mm3 (142-424); Red Blood Count 4.65 M/mm3 (4.20-5.40); Red Cell Distribution Width 13.2 % (11.5-17.5); White Blood Count 7.8 K/mm3 (4.8-10.8)
== END ==
PROVIDERS: PCP Family Medicine; Visit Provider Nurse Practitioner Family
DX: Z20.822 Contact with and (suspected) exposure to COVID-19 (principal)
CPT/HCPCS: 36415; 85025; 87486; 87581; 87632; 87798; C9803; U0003; U0005

== ENCOUNTER 2021-11-19 14:13 | Emergency (ER) | payer MEDICARE, SELFPAY ==
[2021-11-19 14:28] VITALS: BP 143/84; PULSE 67; RESP 16; TEMP 36.5; O2SAT 96; BMI 36.8
--- NOTE | 2021-11-19 15:21 | EXP.UTC ---
Discharge Plan Disposition Patient Disposition: Home, Self-Care Condition: Good Prescriptions Prescriptions: New triamcinolone acetonide 0.5 % cream 1 applic topical TID Qty: 15 0RF No Action Jardiance 10 mg tablet 10 mg PO DAILY potassium chloride 10 mEq tablet extended release 10 meq PO DAILY furosemide 10 MG/ML solution 10 mg PO DAILY pantoprazole 20 MG tablet,delayed release (DR/EC) 20 mg PO DAILY losartan 25 MG tablet 25 mg PO DAILY rosuvastatin 10 MG tablet 20 mg PO DAILY metformin 500 MG tablet,ER geri.retention 24 hr 500 mg PO DAILY levocetirizine 5 MG tablet 5 mg PO DAILY Referrals Follow up/Referrals: Blank Walls MD [Primary Care Provider] - See instructions Clinical Impressions Clinical Impression: Insect bite Qualifiers: Encounter type: initial encounter Site of insect bite: hand Laterality: right Qualified Code(s): S60.561A - Insect bite (nonvenomous) of right hand, initial encounter Discharge ED Provider: Bianka Carlson [facility] [place] [facility] [place] General Stated complaint: RT hand possible insect bite Mode of Arrival: Ambulatory Source of Information: Patient Limitations: No Limitations Time Seen by Provider: 11/19/21 15:20 Description of Symptoms (Recalled from Triage Doc. by RN): pt comes in with c/o possible insect bite. pt states that when she woke up this morning she noticed two red spots on her right hand, since then spots have become more red and swollen. pt concerned for brown recluse spider bite, but unsure of what bit her. HEENT Symptoms (Recalled from RN notes): No Resp Symptoms (Recalled from RN notes): No Skin Symptoms (Recalled from RN notes): Yes MS Symptoms (Recalled from RN notes): No Functional Status (Recalled from RN notes): n/a History of Present Illness Provider Complaint: Pt states that she woke up with 2 sites where she had an insect bite. Pt states that her brother was bitten by a brown recluse years ago and she wants to make sure that she has not had anything like that. She states she sprayed with some alcohol to stop the itching. Related Data Home Medications Medication Instructions Recorded Confirmed furosemide 10 mg/mL oral solution 10 mg PO DAILY Fluid 06/11/19 11/19/21 levocetirizine 5 mg tablet 5 mg PO DAILY allergies 06/11/19 11/19/21 losartan 25 mg tablet 25 mg PO DAILY bp 06/11/19 11/19/21 metformin 500 mg 24 hr 500 mg PO DAILY Diabetes 06/11/19 11/19/21 tablet,extended release pantoprazole 20 mg tablet,delayed 20 mg PO DAILY GERD 06/11/19 11/19/21 release rosuvastatin 10 mg tablet 20 mg PO DAILY Cholesterol 06/11/19 11/19/21 empagliflozin 10 mg tablet 10 mg PO DAILY Diabetes 11/19/21 11/19/21 (Jardiance) potassium chloride 10 mEq 10 meq PO DAILY Supplement 11/19/21 11/19/21 tablet,extended release Previous Rx's Medication Instructions Recorded triamcinolone acetonide 0.5 % 1 applic topical TID #15 grams 11/19/21 topical cream Allergies Allergy/AdvReac Type Severity Reaction Status Date / Time amoxicillin [From AUGMENTIN] Allergy Unknown Verified 11/19/21 14:39 clavulanic acid Allergy Unknown Verified 11/19/21 14:39 [From AUGMENTIN] codeine [CODEINE] Allergy Unknown Verified 11/19/21 14:39 Worker's Comp Is this a Worker's Comp case?: No PFSH PFSH Social History Smoking Status: Never smoker second hand exposure: No alcohol intake: never current occupational status: employed Travel in the last 8 weeks: None household members: spouse housing: house 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
[2021-11-19 15:32] VITALS: BP 143/84; PULSE 67; RESP 16; TEMP 36.5
== END 2021-11-19 15:37 | disposition home or self-care (01) ==
PROVIDERS: Emergency Provider Nurse Practitioner Family; PCP Family Medicine
DX: S60.561A Insect bite (nonvenomous) of right hand, initial encounter (principal); Z79.84 Long term (current) use of oral hypoglycemic drugs; Z79.899 Other long term (current) drug therapy; Z88.0 Allergy status to penicillin; Z88.1 Allergy status to other antibiotic agents; Z88.3 Allergy status to other anti-infective agents; Z88.8 Allergy status to other drugs, medicaments and biological substances
CPT/HCPCS: 99213; G0463

== ENCOUNTER → 2022-01-30 12:18 | Outpatient (CLI) | payer MEDICARE, SELFPAY ==
--- NOTE | 2022-01-30 12:35 | XR_ITS ---
FINAL REPORT CLINICAL HISTORY: foot pain FINDINGS: RIGHT FOOT Three views of the right foot demonstrate no acute fracture or dislocation. There are mild degenerative changes in the hindfoot. There is moderate plantar calcaneal spurring. The soft tissues are unremarkable. IMPRESSION: Mild degenerative changes in the hindfoot with no acute bony abnormality. Reviewed, Interpreted and Dictated by Blank Coats MD Transcribed by Oralia Adkins Authenticated and [facility]
--- NOTE | 2022-01-30 12:35 | XR_ITS ---
FINAL REPORT CLINICAL HISTORY: foot pain FINDINGS: LEFT FOOT Three views of the left foot demonstrate no acute fracture or dislocation. There is mild degenerative changes in the hindfoot. There is mild calcaneal spurring. The soft tissues are unremarkable. IMPRESSION: Mild degenerative change in the hindfoot with no acute bony abnormality. Reviewed, Interpreted and Dictated by Blank Coats MD Transcribed by Oralia Adkins Authenticated and [facility]
== END ==
PROVIDERS: PCP Family Medicine; Visit Provider Nurse Practitioner Family
DX: M79.671 Pain in right foot (principal); M79.672 Pain in left foot
CPT/HCPCS: 73630

== ENCOUNTER → 2022-02-23 09:07 | Outpatient (CLI) | payer MEDICARE, SELFPAY ==
--- NOTE | 2022-02-23 09:12 | MM_ITS ---
PROCEDURE INFORMATION: Exam: MG Bilateral Screening 3D Mammography Exam date and time: 02/23/2022 9:06 AM Age: 71 years old Clinical indication: Screening examination TECHNIQUE: Imaging protocol: Bilateral Screening tomosynthesis and 2D mammography including computer-aided detection (CAD) when performed. COMPARISON: 1. MG MM DIG SCREENING MAMM BI W/CAD 06/28/2020 8:37 AM 2. MG MM DIG SCREENING MAMM BI W/CAD 03/25/2019 3:52 PM FINDINGS: MAMMOGRAPHY: Breast composition: There are scattered areas of fibroglandular density. Mass: None. Architectural distortion: None. Calcifications: No suspicious calcifications. Asymmetric density: None. Skin thickening: None. Axillary adenopathy: None. IMPRESSION: No mammographic evidence of malignancy. Annual screening is recommended unless otherwise clinically indicated. ASSESSMENT: BI-RADS Category 1: Negative
== END ==
PROVIDERS: PCP Family Medicine; Visit Provider Family Medicine
DX: Z12.31 Encounter for screening mammogram for malignant neoplasm of breast (principal)
CPT/HCPCS: 77063; 77067

== ENCOUNTER 2023-03-30 10:09 | Outpatient (CLI) | payer MEDICARE, SELFPAY ==
--- NOTE | 2023-03-30 10:13 | MM_ITS ---
PROCEDURE INFORMATION: Exam: MG Bilateral Diagnostic Breast Tomosynthesis Exam date and time: 03/30/2023 10:02 AM Age: 72 years old Clinical indication: Palpable abnormality in the left breast mass TECHNIQUE: Imaging protocol: Bilateral Diagnostic tomosynthesis and 2D mammography including computer-aided detection (CAD) when performed. Unilateral or bilateral exam. COMPARISON: 1. MG MM DIG SCREENING MAMM BI W/CAD 02/23/2022 9:06 AM 2. MG MM DIG SCREENING MAMM BI W/CAD 06/28/2020 8:37 AM FINDINGS: MAMMOGRAPHY: The breast tissue is composed of scattered areas of fibroglandular density. There is no stellate mass, architectural distortion or suspicious microcalcifications in either breast to suggest malignancy. A skin marker was placed over an area of palpable concern in the posterior left upper outer quadrant. Predominantly adipose tissue is seen. No skin thickening or axillary adenopathy. IMPRESSION: Patient to be recalled for targeted left breast ultrasound for full evaluation of a palpable left breast mass ASSESSMENT: BI-RADS Category 0: Incomplete- Need Additional Imaging Evaluation and/or Prior Mammograms for Comparison
== END 2023-03-30 23:59 ==
LOC: RAD 10:09
PROVIDERS: PCP Family Medicine; Visit Provider Family Medicine
DX: Z12.31 Encounter for screening mammogram for malignant neoplasm of breast (principal)
CPT/HCPCS: 77063; 77067

== ENCOUNTER 2023-04-11 13:49 | Outpatient (CLI) | payer MEDICARE, SELFPAY ==
--- NOTE | 2023-04-11 13:54 | US_ITS ---
PROCEDURE INFORMATION: Exam: US Left Breast, Complete Exam date and time: 04/11/2023 2:09 PM Age: 72 years old Clinical indication: Palpable abnormality in the left breast TECHNIQUE: Imaging protocol: Complete ultrasound of all four quadrants of the left breast and the retroareolar regions, including ultrasound of the axilla when performed. COMPARISON: MG MM DIG SCREENING MAMM BI W/CAD 03/30/2023 10:02 AM FINDINGS: Breast: Sonographic images of the left breast including the retroareolar region, all 4 quadrants and the axilla do not demonstrate any solid or cystic masses. This is with particular attention to the 3 o'clock axis 8 cm from the nipple where the patient reports a palpable abnormality. No architectural distortion or acoustical shadowing. No skin thickening or axillary adenopathy. Other findings: Review of the patient's mammogram performed 03/30/2023 did not demonstrate any suspicious findings IMPRESSION: Palpable abnormality in the left breast corresponds both mammographically and sonographically to predominantly adipose tissue structures. There is no mammographic evidence of malignancy. Further evaluation of a palpable abnormality should be based on clinical grounds regardless of radiographic findings or lack thereof. Annual mammographic screening is recommended unless otherwise clinically indicated. ASSESSMENT: BI-RADS Category 1: Negative
== END 2023-04-11 23:59 ==
LOC: RAD 13:49
PROVIDERS: PCP Family Medicine; Visit Provider Physician Assistant
DX: R92.8 Other abnormal and inconclusive findings on diagnostic imaging of breast (principal); N63.20 Unspecified lump in the left breast, unspecified quadrant
CPT/HCPCS: 76641

== ENCOUNTER 2024-03-06 09:49 | Emergency (ER) | payer MEDICARE, SELFPAY ==
[2024-03-06] VITALS (7 sets, daily range): BP systolic 109–131; BP diastolic 59–86; PULSE 55–70; RESP 12–19; TEMP 36.6; O2SAT 93–97; BMI 33.4
--- NOTE | 2024-03-06 09:47 | ECG_ITS ---
APPROVED REPORT Exam: Resting ECG HR:63 bpm ECG Measurements Heart Rate [address] 171 P 42 QRSd 93 QRS 16 QT 414 T 43 QTc 420 Conclusion SINUS RHYTHM WITH SINUS ARRHYTHMIA NORMAL ECG UNCONFIRMED REPORT Electronically signed by : Ray Jon, 03/06/2024 15:34:57
--- NOTE | 2024-03-06 10:25 | XR_ITS ---
FINAL REPORT CLINICAL HISTORY: dyspnea FINDINGS: A portable view of the chest is obtained. There is no prior images for comparison. Cardiac and mediastinal silhouettes are normal. Lung volumes are low. There is right basilar atelectasis. The lungs are otherwise clear. There is no pleural effusion or pneumothorax. IMPRESSION: Low lung volumes with right basilar atelectasis. Reviewed, Interpreted and Dictated by Anaid Morales MD Transcribed by Daija Colvin Authenticated and [facility]
--- NOTE | 2024-03-06 10:30 | HMH.EDCP ---
Discharge Plan Disposition Patient Disposition: Home, Self-Care Prescriptions Prescriptions: No Action aeukvwcwhv-mssiagobtuo-jhxfyys 8-1-1 % solution 6.6 ml topical .COMPLEX 90 Days Qty: 15 0RF Rx Instructions: 6.6 mL topically daily; Apply to right hallux nails daily. Patient is to apply for 7 days. At the end of the 7th day they should remove the nail yi with nail yi remove and start the application process. Results will not show for 3-4 months. Patient understands it takes 10-12 months for a nail to completely grow out. ciclopirox 8 % solution 1 applic topical HS 28 Days Qty: 6.6 0RF Jardiance 10 mg tablet 10 mg PO DAILY potassium chloride 10 mEq tablet extended release 10 meq PO DAILY triamcinolone acetonide 0.5 % cream 1 applic topical TID Qty: 15 0RF furosemide 10 MG/ML solution 10 mg PO DAILY pantoprazole 20 MG tablet,delayed release (DR/EC) 20 mg PO DAILY losartan 25 MG tablet 25 mg PO DAILY rosuvastatin 10 MG tablet 20 mg PO DAILY metformin 500 MG tablet,ER geri.retention 24 hr 500 mg PO DAILY levocetirizine 5 MG tablet 5 mg PO DAILY Activity Restrictions/Add. Instructions Additional Instructions/Restrictions: No evidence of an acute cardiopulmonary emergency you may follow-up with your materials associate or with your primary care doctor as needed. Clinical Impressions Clinical Impression: Chest pain Print Language Print Language: British Discharge ED Provider: Ramses Jon HPI General Chief Complaint: Chest Pain Stated Complaint: chest pain Time Seen by Provider: 03/06/24 10:20 Mode of Arrival: Ambulatory Source of Information: Patient Limitations: No Limitations Description of Symptoms (Recalled from ER Triage Doc. by RN): PT C/O SHARP PINPOINT INTERMITTENT PAIN OVER HER CHEST. PAIN STARTED AT REST WHILE DRINKING COFFEE AT [employer]. PAIN ONGOING FOR ABOUT 1 HOUR. History of Present Illness HPI narrative: 73-year-old presented emergency part with chest pain. Started around 8 to 9 AM intermittent momentary pain that only lasts for seconds. No ongoing exertional pain no shortness of breath diaphoresis radiation etc. No history of any coronary artery disease or pulmonary disease in the past. No leg swelling hemoptysis recent prolonged immobilizations etc. She is currently without symptoms at the moment. Has had stress test in the past significant abnormalities. Related Data Home Medications ?Medication ?Instructions ?Recorded ?Confirmed furosemide 10 mg/mL oral solution 10 mg PO DAILY Fluid 06/11/19 05/03/22 levocetirizine 5 mg tablet 5 mg PO DAILY allergies 06/11/19 05/03/22 losartan 25 mg tablet 25 mg PO DAILY bp 06/11/19 05/03/22 metformin 500 mg 24 hr 500 mg PO DAILY Diabetes 06/11/19 05/03/22 tablet,extended release (gastric retention) pantoprazole 20 mg tablet,delayed 20 mg PO DAILY GERD 06/11/19 05/03/22 release rosuvastatin 10 mg tablet 20 mg PO DAILY Cholesterol 06/11/19 05/03/22 empagliflozin 10 mg tablet 10 mg PO DAILY Diabetes 11/19/21 05/03/22 (Jardiance) potassium chloride 10 mEq 10 meq PO DAILY Supplement 11/19/21 05/03/22 tablet,extended release Previous Rx's ?Medication ?Instructions ?Recorded triamcinolone acetonide 0.5 % 1 applic topical TID #15 grams 11/19/21 topical cream ciclopirox 8 % topical solution 1 applic topical HS 4 weeks #6.6 mL 05/03/22 ciclopirox 8 %-fluconazole 1 6.6 ml topical .COMPLEX 3 months 05/03/22 %-terbinafine 1 % topical solution #15 grams Allergies Allergy/AdvReac Type Severity Reaction Status Date / Time amoxicillin (From AUGMENTIN) Allergy Unknown Verified 05/03/22 10:07 clavulanic acid (From Allergy Unknown Verified 05/03/22 10:07 AUGMENTIN) codeine (CODEINE) Allergy Unknown Verified 05/03/22 10:07 [facility] Disclaimer: The information contained in this section may have been updated after the patient was seen, as this information can be updated by other users. 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 current occupational exposures/hazards: No caffeine: No Have you lived/traveled outside [place] in past 30 days?: No Contact w/someone who lives/traveled outside US past 30 days?: No Exposure to someone with infectious disease in past 14 days?: No Do you have a fever (greater than 100.4 F or 38 C)?: No Have you tested positive for COVID-19: No Exposed to someone with COVID-19 in past 14 days?: No Do you have a sore throat?: No Do you have a cough?: No Do you have any weakness?: No Do you have any diarrhea?: No Are you experiencing any unusual bleeding?: No Do you have any muscle aches/pain?: No Do you have any abdominal pain?: No Are you experiencing loss of taste or smell?: No Other Medical History Have you received the Flu Vaccine for this season: Yes Have you received the Pneumonia Vaccine: Yes ROS Obtained: Yes All systems reviewed & no additional complaints except as documented Physical Exam General General appearance: alert and in no apparent distress Respiratory Respiratory exam: Present normal lung sounds bilaterally; Absent respiratory distress Cardiovascular Cardiovascular exam: Present regular rate and normal rhythm Neurological Exam Neurological exam: Present alert and oriented X3 HEART Score HEART Score HEART Score assessment performed?: Yes History (anamnesis): Slightly suspicious ECG: Normal Age: >65 years Risk factors: No known risk factors Troponin: </= normal limit HEART Score: 2 Critical Care Critical Care Time Critical Care Time: No Medical Decision Making Agustin Inquiry Pt receiving controlled substance: No Vital Signs Vital Signs: 03/06/24 09:50 03/06/24 10:07 03/06/24 10:30 Temperature 97.9 F Temperature Source Oral Pulse Rate 61 56 L Pulse Rate [Apical] 70 Respiratory Rate 18 13 12 Blood Pressure 126/78 109/61 L Blood Pressure [Right Arm] 131/86 Blood Pressure Mean [Right Arm] 101 Blood Pressure Source [Right Arm] Automatic Cuff Blood Pressure Position [Right Arm] Sitting 02 Sat by Pulse Oximetry 96 95 95 Oxygen Delivery Method Room Air 03/06/24 11:00 03/06/24 11:30 Temperature Temperature Source Pulse Rate 56 L 55 L Pulse Rate [Apical] Respiratory Rate 19 19 Blood Pressure 120/61 126/72 Blood Pressure [Right Arm] Blood Pressure Mean [Right Arm] Blood Pressure Source [Right Arm] Blood Pressure Position [Right Arm] 02 Sat by Pulse Oximetry 94 L 94 L Oxygen Delivery Method Lab Data Lab results reviewed: Yes I reviewed the patient's lab results. Labs: Lab Results 03/06/24 09:58: WBC 8.0, RBC 4.95, Hgb 15.4, Hct 46.9, MCV 94.7, MCH 31.1, MCHC 32.8, RDW 13.1, Plt Count 271, MPV 10.7 H, Neut % (Auto) 51.3, Lymph % (Auto) 39.5, [place] % (Auto) 5.4, Eos % (Auto) 2.9, Baso % (Auto) 0.6, Neut # (Auto) 4.1, Lymph # (Auto) 3.1, [place] # (Auto) 0.4, Eos # (Auto) 0.2, Baso # (Auto) 0.1, D-Dimer 0.43, Sodium 137, Potassium 3.7, Chloride 103, Carbon Dioxide 29, Anion Gap 8.7, BUN 24 H, Creatinine 0.90, Estimated Creat Clear 79, Estimated GFR 61, Est GFR ( Amer) 74, Glucose 126 H, Calcium 10.2, Total Bilirubin 0.8, AST 53 H, ALT 31, Alkaline Phosphatase 62, Troponin I < 0.01, Total Protein 7.3, Albumin 4.6, Globulin 2.7, Albumin/Globulin Ratio 1.7, Lipase 75 03/06/24 09:58 03/06/24 09:58 Response Orders (Tests/Meds): ORDERS Category Date Time Status CXR --portable [XR chest portable] Stat Exams 03/06/24 10:25 Taken CBC w/Auto Diff [Complete Blood Count Auto Diff] Stat Lab 03/06/24 09:58 Completed CMP [Comprehensive Metabolic Panel] Stat Lab 03/06/24 09:58 Completed D-Dimer Stat Lab 03/06/24 09:58 Completed HIV Combo Stat Lab 03/06/24 09:58 Received Hep C Ab with Reflex to RNA Stat Lab 03/06/24 09:58 Received Lipase Stat Lab 03/06/24 09:58 Completed Trop I [Troponin I] Stat Lab 03/06/24 09:58 Completed Troponin I Q3H Lab 03/06/24 13:30 Ordered Troponin I Q3H Lab 03/06/24 16:30 Ordered ECG Data Tracing #1: Attestation: I reviewed this ECG and interpreted as documented below: ECG Narrative: Ventricular rate of 63 normal sinus rhythm no acute ischemic changes noted normal axis no significant conduction abnormality MDM Narrative Medical Decision Narrative: Very well-appearing 73-year-old presented with atypical momentary chest pain this is not on continuous very unlikely to be a pulmonary embolism or acute coronary syndrome. Given the fact that symptoms will last for a few seconds will not get serial troponins given the significant atypical component of this. EKG even when she was having symptoms was completely normal without any evidence of ischemia. Will get a single troponin and a D-dimer given age but pulmonary believe the myositis unlikely. D-dimer cutoff will be 1.0 utilizing years criteria. She is currently asymptomatic has a normal exam and I will have her follow-up outpatient if her initial workup is complete. Reassessment 1155 patient remains very stable she has had some intermittent episodes where there is a spasm type sensation only last a few seconds. Again this is not consistent with a cardiopulmonary emergency. She has had some PVCs while she has been in the emergency department perhaps she is symptomatic from those or is having a muscular spasm. Troponin undetectably low D-dimer below cutoff. Chest x-ray was performed which I personally interpreted which shows no acute cardiopulmonary emergency she will follow-up with her primary care doctor I offered to refer her to cardiology but she prefers to follow-up with Dr. Walls. I believe that is reasonable as I do not think that this is heart related at the moment. She has been reassured very well-appearing on discharge. Precautions and follow-up instructions emphasized.
[2024-03-06 10:36] LABS: Alanine Aminotransferase 31 U/L (12-78); Albumin Level 4.6 g/dl (3.5-5.0); Albumin/Globulin Ratio 1.7 (1.1-1.8); Alkaline Phosphatase 62 U/L (38-126); Aspartate Amino Transferase 53 U/L (14-36); Bilirubin,Total 0.8 mg/dl (0.2-1.3); Blood Urea Nitrogen 24 mg/dl (7-17); Calcium 10.2 mg/dl (8.4-10.2); Carbon Dioxide 29 mmol/L (22.0-30.0); Chloride 103 mmol/L (98-107); Creatinine Clearance Estimated 79 mL/min (50-200); Estimated Glomerular Filt Rate 61 ml/min (>60); GFR (African American) 74 ML/MIN (>60); Globulin 2.7 g/dL (1.3-3.2); Glucose 126 mg/dl (74-100); Lipase 75 U/L (23-300); Sodium 137 mmol/L (136-145); Total Protein,Serum 7.3 g/dl (6.3-8.2)
[2024-03-06 10:42] LABS: D-Dimer 0.43 ug/mL (0.0-0.5)
[2024-03-06 10:44] LABS: Anion Gap 8.7 mEq/L (5-15); Potassium 3.7 mmoL/L (3.5-5.1)
[2024-03-06 10:45] LABS: Basophils # 0.1 K/mm3 (0-0.2); Basophils % 0.6 % (0.1-2.0); Eosinophils # 0.2 K/mm3 (0.0-0.4); Eosinophils % 2.9 % (0.1-12.0); Hematocrit 46.9 % (37.0-47.0); Hemoglobin 15.4 g/dL (12.2-16.2); Lymphocytes # 3.1 K/mm3 (0.7-4.5); Lymphocytes % 39.5 % (10-50); Mean Corpuscular HGB Conc 32.8 g/dL (31.8-35.4); Mean Corpuscular Hemoglobin 31.1 pg (27.0-31.2); Mean Corpuscular Volume 94.7 fl (81-99); Mean Platelet Volume 10.7 fl (7.4-10.4); Monocytes # 0.4 K/mm3 (0.1-1.0); Monocytes % 5.4 % (1.7-9.3); Neutrophils # 4.1 K/mm3 (1.8-7.8); Neutrophils % 51.3 % (37.0-80.0); Platelet Count 271 K/mm3 (142-424); Red Blood Count 4.95 M/mm3 (4.20-5.40); Red Cell Distribution Width 13.1 % (11.5-17.5)
[2024-03-06 10:51] LABS: Troponin I < 0.01 ng/ml (0.00-0.034)
--- NOTE | 2024-03-06 11:51 | PC.NURSE ---
DR FARR AT BEDSIDE TO UPDATE PT
[2024-03-06 13:40] LABS: HIV Combo NEGATIVE (Negative)
[2024-03-07 05:53] LABS: HCV Ab Non Reactive (Non Reactive)
== END 2024-03-06 12:09 | disposition home or self-care (01) ==
PROVIDERS: Emergency Provider Student in an Organized Health Care Education/Training Program; PCP Family Medicine
DX: R07.9 Chest pain, unspecified (principal)
CPT/HCPCS: 71045; 80053; 83690; 84484; 85025; 85378; 86803; 87389; 93005; 99284

== ENCOUNTER 2024-05-26 23:50 | Emergency (ER) | payer MEDICARE, SELFPAY ==
[2024-05-27] VITALS: BP 133/92; PULSE 68; RESP 14
[2024-05-27 00:10] VITALS: BP 133/92; PULSE 66; RESP 16; TEMP 36.6; O2SAT 95; BMI 33.1
[2024-05-27] MEDS: EPINEPHrine 1 MG/ML AMPUL 0.3 MG IM (00:16)
[2024-05-27] MEDS: METHYLPREDNISOLONE SOD SUCC 125MG VIAL 125 MG IV (00:16)
[2024-05-27] MEDS: FAMOTIDINE 20MG/2ML VIAL 20 MG IV (00:16)
[2024-05-27] MEDS: diphenhydrAMINE 50MG/ML VIAL 25 MG IV (00:16)
[2024-05-27] MEDS: SODIUM CHLORIDE 0.9% 10ML VIAL 8 ML IV (00:16)
[2024-05-27 00:30] VITALS: BP 123/69; PULSE 60; O2SAT 98
[2024-05-27 01:00] VITALS: BP 135/69; PULSE 64; RESP 14; O2SAT 95
[2024-05-27 01:30] VITALS: BP 147/71; PULSE 70; RESP 16; O2SAT 94
[2024-05-27 02:34] VITALS: BP 147/71; PULSE 70; RESP 16; TEMP 36.6; O2SAT 94
--- NOTE | 2024-05-27 03:09 | ED_ITS ---
Discharge Plan Disposition Patient Disposition: Home, Self-Care Condition: Good Prescriptions Prescriptions: New prednisone 20 mg tablet 40 mg PO DAILY 3 Days Qty: 6 0RF epinephrine 0.3 mg/0.3 mL auto-injector 0.3 mg IM Q15M PRN (Reason: anaphylaxis) Qty: 2 0RF Rx Instructions: for 2 doses No Action rzgmuxppfz-abglyztiwxx-xxdptto 8-1-1 % solution 6.6 ml topical .COMPLEX 90 Days Qty: 15 0RF Rx Instructions: 6.6 mL topically daily; Apply to right hallux nails daily. Patient is to apply for 7 days. At the end of the 7th day they should remove the nail togolese with nail togolese remove and start the application process. Results will not show for 3-4 months. Patient understands it takes 10-12 months for a nail to completely grow out. ciclopirox 8 % solution 1 applic topical HS 28 Days Qty: 6.6 0RF Jardiance 10 mg tablet 10 mg PO DAILY potassium chloride 10 mEq tablet extended release 10 meq PO DAILY triamcinolone acetonide 0.5 % cream 1 applic topical TID Qty: 15 0RF furosemide 10 MG/ML solution 10 mg PO DAILY pantoprazole 20 MG tablet,delayed release (DR/EC) 20 mg PO DAILY losartan 25 MG tablet 25 mg PO DAILY rosuvastatin 10 MG tablet 20 mg PO DAILY metformin 500 MG tablet,ER geri.retention 24 hr 500 mg PO DAILY levocetirizine 5 MG tablet 5 mg PO DAILY Referrals Follow up/Referrals: Blank Walls MD [Primary Care Provider] - See instructions Activity Restrictions/Add. Instructions Additional Instructions/Restrictions: You were evaluated in the ER and are appropriate for discharge at this time. Stop taking the nitrofurantoin (Macrobid). Call your primary care doctor first thing in the morning and ask for a different prescription and tell them that you had anaphylaxis to nitrofurantoin (Macrobid). Take the prescribed prednisone as directed. Use the prescribed EpiPen if needed for anaphylaxis as discussed. If you use the EpiPen, immediately come to the ER for further evaluation. Return to the ER with any new, worsening, or otherwise concerning symptoms. Clinical Impressions Clinical Impression: Anaphylaxis, Medication reaction Instructions Patient Instructions: Anaphylaxis, DI for Anaphylaxis Print Language Print Language: Vietnamese Discharge ED Provider: Kern,Mikalah General Adult HPI General Chief complaint: Allergic Reaction Stated complaint: MAN, redness all over, sore throat Time Seen by Provider: 05/27/24 00:00 Mode of Arrival: Ambulatory Source of Information: Patient Description of Symptoms (Recalled from ER Triage Doc. by RN): pt presents with c/o diffuse rash and sore throat since taking PO macrobid earlier today. Pt reports to never taking this medication, and states I could have went to bed with just the rash but when my throat started hurting I got scared Pt presents with airway open and able to handle own secretions. History of Present Illness HPI narrative: 73-year-old female presents to the ER for complaints of rash, sore throat, nausea. Patient reports she has been on multiple medications recently for urinary tract infection. She states she was started on ciprofloxacin but this reportedly was not going to treat her infection because she had resistance. She was then started on a different medication which she completed, but when she had her urine retested at her PCP, she still showed signs of infection. Patient was started on Macrobid today. She has taken 2 doses prior to arrival, after taking her second dose she noticed redness and swelling patches on the skin. She states she could have dealt with that but then she noticed her throat hurting and starting to feel swollen and she got scared. Patient presented to the ER with no voice changes, she has not had any emesis but does report nausea, she reports that her tongue and throat feel swollen. She has never had anaphylaxis or severe allergic reaction in the past. Related Data Home Medications ?Medication ?Instructions ?Recorded ?Confirmed furosemide 10 mg/mL oral solution 10 mg PO DAILY Fluid 06/11/19 05/03/22 levocetirizine 5 mg tablet 5 mg PO DAILY allergies 06/11/19 05/03/22 losartan 25 mg tablet 25 mg PO DAILY bp 06/11/19 05/03/22 metformin 500 mg 24 hr 500 mg PO DAILY Diabetes 06/11/19 05/03/22 tablet,extended release (gastric retention) pantoprazole 20 mg tablet,delayed 20 mg PO DAILY GERD 06/11/19 05/03/22 release rosuvastatin 10 mg tablet 20 mg PO DAILY Cholesterol 06/11/19 05/03/22 empagliflozin 10 mg tablet 10 mg PO DAILY Diabetes 11/19/21 05/03/22 (Jardiance) potassium chloride 10 mEq 10 meq PO DAILY Supplement 11/19/21 05/03/22 tablet,extended release Previous Rx's ?Medication ?Instructions ?Recorded triamcinolone acetonide 0.5 % 1 applic topical TID #15 grams 11/19/21 topical cream ciclopirox 8 % topical solution 1 applic topical HS 4 weeks #6.6 mL 05/03/22 ciclopirox 8 %-fluconazole 1 6.6 ml topical .COMPLEX 3 months 05/03/22 %-terbinafine 1 % topical solution #15 grams epinephrine 0.3 mg/0.3 mL 0.3 mg (0.3 mL) IM Q15M PRN 05/27/24 injection, auto-injector anaphylaxis #2 ea prednisone 20 mg tablet 40 mg (2 x 20 mg) PO DAILY 3 days 05/27/24 #6 tabs Allergies Allergy/AdvReac Type Severity Reaction Status Date / Time nitrofurantoin (From Allergy Severe Anaphylaxis Verified 05/27/24 02:09 Macrobid) amoxicillin (From AUGMENTIN) Allergy Unknown Verified 05/03/22 10:07 clavulanic acid (From Allergy Unknown Verified 05/03/22 10:07 AUGMENTIN) codeine (CODEINE) Allergy Unknown Verified 05/03/22 10:07 [facility] Disclaimer: The information contained in this section may have been updated after the patient was seen, as this information can be updated by other users. 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 current occupational exposures/hazards: No caffeine: No Have you lived/traveled outside US in past 30 days?: No Contact w/someone who lives/traveled outside US past 30 days?: No Exposure to someone with infectious disease in past 14 days?: No Do you have a fever (greater than 100.4 F or 38 C)?: No Have you tested positive for COVID-19: No Exposed to someone with COVID-19 in past 14 days?: No Do you have a sore throat?: Yes Do you have a cough?: No Do you have any weakness?: No Do you have any diarrhea?: No Are you experiencing any unusual bleeding?: No Do you have any muscle aches/pain?: No Do you have any abdominal pain?: No Are you experiencing loss of taste or smell?: No Other Medical History Have you received the Flu Vaccine for this season: Yes Have you received the Pneumonia Vaccine: Yes ROS Obtained: Yes Systems reviewed as appropriate & no additional complaints except as documented per HPI Physical Exam General General appearance: alert and in no apparent distress Head Head exam: atraumatic and normocephalic Eye Eye exam: Present PERRL and EOMI ENT ENT exam: Present mucous membranes moist and other (No obvious swelling of the tongue, lips, or soft palate) Neck Neck exam: Present normal inspection, full ROM and other (Patient has few red patches and urticaria on the anterior neck) Chest Chest inspection: Present normal inspection and symmetric chest wall rise Respiratory Respiratory exam: Present normal lung sounds bilaterally and other (No difficulty breathing, stridor, or wheezes, saturating well on room air); Absent respiratory distress, wheezes or stridor Cardiovascular Cardiovascular exam: Present regular rate and normal rhythm Abdominal Exam Abdominal exam: Present soft; Absent distention or tenderness Comment: Skin exam demonstrates few patches of urticaria Extremities Exam Extremities exam: Present full ROM and other (Scattered patches of urticaria on the upper and lower extremities); Absent edema Neurological Exam Neurological exam: Present alert and oriented X3; Absent motor sensory deficit Psychiatric Psychiatric exam: Present normal affect and normal mood Skin Skin exam: Present warm and dry Medical Decision Making Medical Records Medical records reviewed: Yes I reviewed the patient's medical records. Screening: Per USPSTF and CDC recommendations, given the prevalence of disease in our region, it is our hospital?s policy to screen for HIV and viral Hepatitis for all patients aged 18 and over and those with ongoing risk factors. MR Comment: Unfortunately I am unable to view any recent urine studies or urine cultures from patient's PCP. Agustin Inquiry Pt receiving controlled substance: No Vital Signs: 05/27/24 00:00 05/27/24 00:10 05/27/24 00:30 Temperature 97.9 F Temperature Source Oral Pulse Rate 68 60 Pulse Rate [Radial] 66 Respiratory Rate 14 16 Blood Pressure 133/92 H 123/69 Blood Pressure [Right Arm] 133/92 H Blood Pressure Mean [Right Arm] 105 Blood Pressure Position Sitting Sitting Blood Pressure Position [Right Arm] Sitting 02 Sat by Pulse Oximetry 95 98 Oxygen Delivery Method Room Air Room Air 05/27/24 01:00 05/27/24 01:30 05/27/24 02:34 Temperature 97.9 F Temperature Source Pulse Rate 64 70 70 Pulse Rate [Radial] Respiratory Rate 14 16 16 Blood Pressure 135/69 147/71 H 147/71 H Blood Pressure [Right Arm] Blood Pressure Mean [Right Arm] Blood Pressure Position Sitting Sitting Sitting Blood Pressure Position [Right Arm] 02 Sat by Pulse Oximetry 95 94 L Oxygen Delivery Method Room Air Room Air Room Air Orders (Tests/Meds): ED MEDICATIONS Discontinued Medications Generic Name Dose Route Start Last Admin Trade Name Freq PRN Reason Stop Dose Admin Diphenhydramine HCl 25 mg 05/27/24 00:08 05/27/24 00:16 Diphenhydramine 50mg/Ml Vial IV 05/27/24 00:09 25 mg ONCE ONE Administration Epinephrine HCl 0.3 mg 05/27/24 00:08 05/27/24 00:16 Epinephrine 1 Mg/Ml Ampul IM 05/27/24 00:09 0.3 mg ONCE ONE Administration Famotidine 20 mg 05/27/24 00:08 05/27/24 00:16 Famotidine 20mg/2ml Vial IV 05/27/24 00:09 20 mg ONCE ONE Administration Methylprednisolone Sodium Succinate 125 mg 05/27/24 00:08 05/27/24 00:16 Methylprednisolone Sod Succ 125mg Vial IV 05/27/24 00:09 125 mg ONCE ONE Administration Sodium Chloride 8 ml 05/27/24 00:08 05/27/24 00:16 Sodium Chloride 0.9% 10ml Vial IV 06/26/24 00:07 8 ml NEEDED PRN Administration dilute pepcid Medical Decision Narrative: In summary, this 73-year-old female who has been repeatedly treated for recurrent UTI not at goal therapy presents to the emergency department today with concerns of medication reaction. On initial evaluation patient is hemodynamically stable, afebrile, she has erythematous raised plaques consistent with urticaria on many areas of the body, she reports throat tightness but I do not appreciate any evidence of mucosal swelling, she also reports nausea but no vomiting and abdominal exam is benign. Patient does not have any evidence of shock. Differential diagnosis includes but is not limited to medication reaction, patient is describing multisystem organ involvement so I am concerned for anaphylaxis. She does not have evidence of angioedema. I do not believe patient requires labs or imaging at this time. She received immediate treatment with intramuscular epinephrine, IV famotidine, IV Solu-Medrol, and IV Benadryl. Patient tolerated these well and had improvement of symptoms nearly immediately. She was placed into ED observation at 0030 to monitor for rebound reaction. 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 On reassessment patient remained hemodynamically stable, hives resolved, her sensation of throat swelling and nausea had also resolved. She had no evidence of rebound reaction. I believe she is appropriate for discharge at this time. She was instructed to stop taking the Macrobid. Since she has demonstrated resistance to antibiotics and has been on multiple antibiotics already for UTI but I am unable to view urine cultures, I am not going to change her antibiotics at this time. I instructed her to call her PCP first thing in the morning and ask for different antibiotic prescription to avoid anything like Macrobid and hopefully avoid further medication reaction. I prescribed prednisone to continue outpatient management of reaction and encouraged the patient to take an bhnm-btx-phtpbtn antihistamine like Claritin or Zyrtec. Additionally I prescribed EpiPen and gave the patient strict instructions on identifying anaphylaxis or severe allergic reaction and use of EpiPen. Patient was comfortable with this plan. Patient was given instructions on symptomatic management, follow up instructions, and return precautions for the emergency department. Patient indicated understanding and was discharged in stable condition. Total time in ED observation: 2 hours 4 minutes Critical Care Critical Care Time Critical Care Time: No
== END 2024-05-27 02:35 | disposition home or self-care (01) ==
PROVIDERS: Emergency Provider Emergency Medicine; PCP Family Medicine
DX: L50.0 Allergic urticaria (principal); R21 Rash and other nonspecific skin eruption; R51.9 Headache, unspecified; R11.0 Nausea; J02.9 Acute pharyngitis, unspecified; T88.6XXA Anaphylactic reaction due to adverse effect of correct drug or medicament properly administered, initial encounter; T36.8X5A Adverse effect of other systemic antibiotics, initial encounter; Z88.1 Allergy status to other antibiotic agents; Z88.5 Allergy status to narcotic agent
CPT/HCPCS: 96374; 96375; 96376; 99284; J0171; J1200; J2919; S0028

== ENCOUNTER 2024-07-31 19:39 | Emergency (ER) | payer MEDICARE, SELFPAY ==
[2024-07-31] VITALS (8 sets, daily range): BP systolic 107–148; BP diastolic 61–72; PULSE 59–69; RESP 12–18; TEMP 36.4–36.8; O2SAT 94–98; BMI 34.2
--- NOTE | 2024-07-31 19:49 | XR_ITS ---
PROCEDURE INFORMATION: Exam: XR Chest Exam date and time: 07/31/2024 7:48 PM Age: 74 years old Clinical indication: Pain; Chest pressure; Additional info: Chest pain TECHNIQUE: Imaging protocol: Radiologic exam of the chest. Views: 2 views. COMPARISON: CR XR CHEST PORTABLE 03/06/2024 10:28 AM FINDINGS: Lungs: Unremarkable. No consolidation. Pleural spaces: Unremarkable. No pleural effusion. No pneumothorax. Heart/Mediastinum: Unremarkable. No cardiomegaly. Bones/joints: Unremarkable. IMPRESSION: No acute findings.
--- NOTE | 2024-07-31 19:50 | ED_ITS ---
Discharge Plan Disposition Patient Disposition: Home, Self-Care Prescriptions Prescriptions: No Action mjnaxydmxa-ulfulmrxiih-icjrjwz 8-1-1 % solution 6.6 ml topical .COMPLEX 90 Days Qty: 15 0RF Rx Instructions: 6.6 mL topically daily; Apply to right hallux nails daily. Patient is to apply for 7 days. At the end of the 7th day they should remove the nail macedonian with nail macedonian remove and start the application process. Results will not show for 3-4 months. Patient understands it takes 10-12 months for a nail to completely grow out. ciclopirox 8 % solution 1 applic topical HS 28 Days Qty: 6.6 0RF Jardiance 10 mg tablet 10 mg PO DAILY potassium chloride 10 mEq tablet extended release 10 meq PO DAILY triamcinolone acetonide 0.5 % cream 1 applic topical TID Qty: 15 0RF furosemide 10 MG/ML solution 10 mg PO DAILY pantoprazole 20 MG tablet,delayed release (DR/EC) 20 mg PO DAILY losartan 25 MG tablet 25 mg PO DAILY rosuvastatin 10 MG tablet 20 mg PO DAILY metformin 500 MG tablet,ER geri.retention 24 hr 500 mg PO DAILY levocetirizine 5 MG tablet 5 mg PO DAILY prednisone 20 mg tablet 40 mg PO DAILY 3 Days Qty: 6 0RF epinephrine 0.3 mg/0.3 mL auto-injector 0.3 mg IM Q15M PRN (Reason: anaphylaxis) Qty: 2 0RF Rx Instructions: for 2 doses Referrals Follow up/Referrals: Blank Walls MD [Primary Care Provider, Medical] - See instructions Activity Restrictions/Add. Instructions Additional Instructions/Restrictions: Follow-up with primary care doctor. Please return to the ER with any new, concerning, worsening symptoms. Clinical Impressions Clinical Impression: Chest discomfort, Throat tightness Print Language Print Language: Montserratian Discharge ED Provider: Ryan Mazariegos General Adult HPI General Chief complaint: Chest Pain Stated complaint: Throat pain,tightness in middle of chest Time Seen by Provider: 07/31/24 19:41 Mode of Arrival: Ambulatory Source of Information: Patient Limitations: No Limitations History of Present Illness HPI narrative: This is a 74-year-old female who presents with concern for throat tightness. States that it began after eating dinner about 3 hours ago. States that she feels like her throat is closing up. She states that she also believes it might be anxiety. States that her is staying at [place] right now and causing her a lot of stress. Also reports shortness of breath. Denies rash, nausea, vomiting, abdominal pain. Denies any other symptoms. Related Data Home Medications ?Medication ?Instructions ?Recorded ?Confirmed furosemide 10 mg/mL oral solution 10 mg PO DAILY Fluid 06/11/19 05/03/22 levocetirizine 5 mg tablet 5 mg PO DAILY allergies 10/2205/03/22 losartan 25 mg tablet 25 mg PO DAILY bp 06/11/19 0 05/03/22 metformin 500 mg 24 hr 500 mg PO DAILY Diabetes 10/2205/03/22 tablet,extended release (gastric retention) pantoprazole 20 mg tablet,delayed 20 mg PO DAILY GERD 06/11/19 05/03/22 release rosuvastatin 10 mg tablet 20 mg PO DAILY Cholesterol 0 06/11/19 05/03/22 empagliflozin 10 mg tablet 10 mg PO DAILY Diabetes 05/03/22 (Jardiance) potassium chloride 10 mEq 10 meq PO DAILY Supplement 0 11/19/21 05/03/22 tablet,extended release Previous Rx's ?Medication ?Instructions ?Recorded triamcinolone acetonide 0.5 % 1 applic topical TID #15 grams 11/19/21 topical cream ciclopirox 8 % topical solution 1 applic topical HS 4 weeks #6.6 mL 05/03/22 ciclopirox 8 %-fluconazole 1 6.6 ml topical .COMPLEX 3 months 05/03/22 %-terbinafine 1 % topical solution #15 grams epinephrine 0.3 mg/0.3 mL 0.3 mg (0.3 mL) IM Q15M PRN 05/27/24 injection, auto-injector anaphylaxis #2 ea prednisone 20 mg tablet 40 mg (2 x 20 mg) PO DAILY 3 days 05/27/24 #6 tabs Allergies Allergy/AdvReac Type Severity Reaction Status Date / Time nitrofurantoin (From Allergy Severe Anaphylaxis Verified 05/27/24 02:09 Macrobid) amoxicillin (From AUGMENTIN) Allergy Unknown Verified 05/03/22 10:07 clavulanic acid (From Allergy Unknown Verified 05/03/22 10:07 AUGMENTIN) codeine (CODEINE) Allergy Unknown Verified 05/03/22 10:07 [facility] Disclaimer: The information contained in this section may have been updated after the patient was seen, as this information can be updated by other users. 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 current occupational exposures/hazards: No caffeine: No Have you lived/traveled outside US in past 30 days?: No Contact w/someone who lives/traveled outside US past 30 days?: No Exposure to someone with infectious disease in past 14 days?: No Do you have a fever (greater than 100.4 F or 38 C)?: No Have you tested positive for COVID-19?: No Exposed to someone with COVID-19 in past 14 days?: No Do you have a sore throat?: No Do you have a cough?: Yes Do you have any weakness?: No Do you have any diarrhea?: No Are you experiencing any unusual bleeding?: No Do you have any muscle aches/pain?: No Do you have any abdominal pain?: No Are you experiencing loss of taste or smell?: No Other Medical History Have you received the Flu Vaccine for this season: Yes Have you received the Pneumonia Vaccine: Yes ROS Obtained: Yes All systems reviewed & no additional complaints except as documented Physical Exam General General appearance: alert and in no apparent distress Head Head exam: atraumatic Eye Eye exam: Present normal appearance, PERRL and EOMI Neck Neck exam: Present normal inspection and full ROM Chest Chest inspection: Present symmetric chest wall rise Respiratory Respiratory exam: Present normal lung sounds bilaterally; Absent respiratory distress or wheezes Cardiovascular Cardiovascular exam: Present regular rate and normal rhythm Abdominal Exam Abdominal exam: Present soft; Absent distention Extremities Exam Extremities exam: Present normal inspection Neurological Exam Neurological exam: Present alert and oriented X3 Psychiatric Psychiatric exam: Present normal affect and normal mood Skin Skin exam: Present warm and dry; Absent rash Medical Decision Making Medical Records Medical records reviewed: Yes I reviewed the patient's medical records. Screening: Per USPSTF and CDC recommendations, given the prevalence of disease in our region, it is our hospital?s policy to screen for HIV and viral Hepatitis for all patients aged 18 and over and those with ongoing risk factors. MR Comment: Emergency department note from 05/27/2024 notable for patient's past medical history of anaphylaxis to nitrofurantoin Agustin Inquiry Pt receiving controlled substance: No Vital Signs: 07/31/24 19:57 07/31/24 20:02 07/31/24 20:30 Temperature 97.6 F Temperature Source Oral Pulse Rate 69 66 Pulse Rate [Right] 69 Respiratory Rate 18 18 Blood Pressure 126/67 Blood Pressure [Right Arm] 148/68 H Blood Pressure Mean [Right Arm] 94 02 Sat by Pulse Oximetry 96 94 L Oxygen Delivery Method Room Air Room Air 07/31/24 21:00 07/31/24 21:30 07/31/24 22:00 Temperature Temperature Source Pulse Rate 61 59 L 60 Pulse Rate [Right] Respiratory Rate 13 12 14 Blood Pressure 121/67 110/68 107/61 L Blood Pressure [Right Arm] Blood Pressure Mean [Right Arm] 02 Sat by Pulse Oximetry 97 98 95 Oxygen Delivery Method 07/31/24 22:30 Temperature Temperature Source Pulse Rate 69 Pulse Rate [Right] Respiratory Rate 18 Blood Pressure 117/72 Blood Pressure [Right Arm] Blood Pressure Mean [Right Arm] 02 Sat by Pulse Oximetry 95 Oxygen Delivery Method Room Air Lab Data Lab Results 07/31/24 19:52: WBC 11.0 H, RBC 4.38, Hgb 13.9, Hct 41.2, MCV 94.1, MCH 31.7 H, MCHC 33.7, RDW 12.5, Plt Count 258, MPV 10.6 H, Neut % (Auto) 55.4, Lymph % (Auto) 35.6, Kern % (Auto) 5.4, Eos % (Auto) 2.9, Baso % (Auto) 0.4, Neut # (Auto) 6.1, Lymph # (Auto) 3.9, Kern # (Auto) 0.6, Eos # (Auto) 0.3, Baso # (Auto) 0.0, Sodium 141, Potassium 3.8, Chloride 107, Carbon Dioxide 26, Anion Gap 11.8, BUN 20 H, Creatinine 0.80, Estimated Creat Clear 77, Estimated GFR 70, Est GFR ( Amer) 85, Glucose 152 H, Calcium 9.3, Total Bilirubin 0.3, AST 35, ALT 27, Alkaline Phosphatase 69, Troponin I < 0.01, Total Protein 7.2, Albumin 4.5, Globulin 2.7, Albumin/Globulin Ratio 1.7, SARS-CoV-2 (PCR) Not detected, Influenza A Untype (PCR) Not detected, Influenza Type B (PCR) Not detected 07/31/24 22:57: Troponin I < 0.01 07/31/24 19:52 07/31/24 19:52 Orders (Tests/Meds): ED MEDICATIONS Discontinued Medications Generic Name Dose Route Start Last Admin Trade Name Andreaq PRN Reason Stop Dose Admin Dexamethasone Sodium Phosphate 8 mg 07/31/24 20:47 07/31/24 20:54 Dexamethasone 4mg/Ml 1ml Vial IV 07/31/24 20:48 8 mg ONCE ONE Administration Hydroxyzine Pamoate 25 mg 07/31/24 19:49 07/31/24 20:14 Hydroxyzine Pamoate 25mg Capsule PO 07/31/24 19:50 25 mg ONCE ONE Administration ORDERS Category Date Time Status Chest XR 2 view (NOT portable) [XR chest 2V] Stat Exams 07/31/24 19:49 Completed CBC w/Auto Diff [Complete Blood Count Auto Diff] Stat Lab 07/31/24 19:52 Completed CMP [Comprehensive Metabolic Panel] Stat Lab 07/31/24 19:52 Completed Rapid PCR Covid and Flu A/B Stat Lab 07/31/24 19:52 Completed Troponin I Q3H Lab 07/31/24 22:57 Completed Troponin I Q3H Lab 08/01/24 02:00 Ordered Troponin I Stat Lab 07/31/24 19:52 Completed ECG Data Tracing #1: I reviewed this ECG and interpreted as documented below: Normal sinus rhythm at a rate of 64, QTc 437, normal axis, no STEMI Medical Decision Narrative: In summary, this 74-year-old female presents to the emergency department today with throat tightness. On initial evaluation patient is afebrile, hematin stable, nontoxic-appearing.. Differential diagnosis includes but is not limited to allergic reaction, anaphylaxis, ACS, pneumonia. Based on these concerns, I ordered CBC, CMP, troponin, EKG, chest x-ray. Does not meet criteria for anaphylaxis at presentation. No wheezing, angioedema, GI symptoms, or skin symptoms. ECG personally interpreted as noted above. Patient received hydroxyzine for treatment. Also gave dexamethasone. Labs personally reviewed demonstrate white blood cell count of 11, unremarkable CMP, undetectable troponin x 2. XR personally interpreted demonstrates no acute cardiopulmonary pathology. On reassessment patient is stable condition with improvement in symptoms. Was appropriate for discharge with PCP follow-up. Critical Care Critical Care Time Critical Care Time: No
--- OUTSIDE RECORDS SUMMARY | 2024-07-31 19:50 | XMS_ITS ---
Author Organization Unknown TREATMENT PLAN [facility] Start Date Provider Encounter for Check-up [id number] [facility]
--- NOTE | 2024-07-31 19:53 | ECG_ITS ---
APPROVED REPORT Exam: Resting ECG HR:64 bpm ECG Measurements Heart Rate 64 AXES AK 172 P 52 QRSd 86 QRS 38 QT 427 T 58 QTc 437 Conclusion SINUS RHYTHM LOW QRS VOLTAGE IN PRECORDIAL LEADS [QRS DEFLECTION < 1.0 mV IN CHEST LEADS] BORDERLINE ECG Electronically signed by : MIKAELA MICHAEL, 08/02/2024 12:38:46
[2024-07-31 20:02] LABS: Basophils % 0.4 % (0.1-2.0); Eosinophils # 0.3 Kmm3 (0.0-0.4); Eosinophils % 2.9 % (0.1-12.0); Hematocrit 41.2 % (37.0-47.0); Hemoglobin 13.9 g/dL (12.2-16.2); Immature Granulocytes # 0.03 10^3uL; Immature Granulocytes % 0.3 %; Lymphocytes # 3.9 K/mm3 (0.7-4.5); Lymphocytes % 35.6 % (10-50); Mean Corpuscular HGB Conc 33.7 g/dL (31.8-35.4); Mean Corpuscular Hemoglobin 31.7 pg (27.0-31.2); Mean Corpuscular Volume 94.1 fl (81-99); Mean Platelet Volume 10.6 fl (7.4-10.4); Monocytes # 0.6 K/mm3 (0.1-1.0); Monocytes % 5.4 % (1.7-9.3); Neutrophils # 6.1 K/mm3 (1.8-7.8); Neutrophils % 55.4 % (37.0-80.0); Nucleated Red Blood Cells # 0 10^3/uL; Nucleated Red Blood Cells % 0 %; Platelet Count 258 K/mm3 (142-424); Red Blood Count 4.38 M/mm3 (4.20-5.40); Red Cell Distribution Width 12.5 % (11.5-17.5); Red Cell Distribution Width-SD 43.7 fL
[2024-07-31 20:07] LABS: Albumin Level 4.5 g/dl (3.5-5.0); Chloride 107 mmol/L (98-107); Potassium 3.8 mmoL/L (3.5-5.1); Sodium 141 mmol/L (136-145)
[2024-07-31 20:10] LABS: Alanine Aminotransferase 27 U/L (12-78); Albumin/Globulin Ratio 1.7 (1.1-1.8); Alkaline Phosphatase 69 U/L (38-126); Anion Gap 11.8 mEq/L (5-15); Aspartate Amino Transferase 35 U/L (14-36); Bilirubin,Total 0.3 mg/dl (0.2-1.3); Blood Urea Nitrogen 20 mg/dl (7-17); Calcium 9.3 mg/dl (8.4-10.2); Carbon Dioxide 26 mmol/L (22.0-30.0); Creatinine Clearance Estimated 77 mL/min (50-200); Estimated Glomerular Filt Rate 70 ml/min (>60); GFR (African American) 85 ML/MIN (>60); Globulin 2.7 g/dL (1.3-3.2); Glucose 152 mg/dl (74-100); Total Protein,Serum 7.2 g/dl (6.3-8.2)
[2024-07-31 20:12] LABS: Coronavirus 19, PCR Not Detected (NotDetected); Influenza A, PCR Not Detected (NotDetected); Influenza B, PCR Not Detected (NotDetected)
[2024-07-31] MEDS: hydrOXYzine pamoate 25MG CAPSULE 25 MG PO (20:14)
[2024-07-31 20:28] LABS: Troponin I < 0.01 ng/ml (0.00-0.034)
[2024-07-31] MEDS: DEXAMETHASONE 4MG/ML 1ML VIAL 8 MG IV (20:54)
[2024-07-31 23:31] LABS: Troponin I < 0.01 ng/ml (0.00-0.034)
== END 2024-07-31 23:45 | disposition home or self-care (01) ==
PROVIDERS: Emergency Provider Student in an Organized Health Care Education/Training Program; PCP Family Medicine
DX: R07.9 Chest pain, unspecified (principal); R07.0 Pain in throat
CPT/HCPCS: 71046; 80053; 84484; 85025; 87636; 93005; 96374; 99284; J1100